=== PATIENT | male | born 1940 | race Caucasian/White ===

== ENCOUNTER 2024-10-21 07:23 | Inpatient (IN) | payer MEDICARE, BC ==
[~2024-10-21] VITALS: Ht 170.2 cm; Wt 80.0 kg
[2024-10-21 08:08] VITALS: PULSE 97; RESP 32; O2SAT 92
--- NOTE | 2024-10-21 08:13 | ED.PDOC ---
HPI (NEURO) HPI Comments 84 year old male NORAH presents to the ED with chief complaint of generalized weakness. Patient reports that at around 3am, he had gotten up to go to the restroom when he had started to feel generally weak. Patient relays that when attempting to leave the bathroom, he had lost his balance and fell, causing a skin tear to his right elbow. Patient states that he had tried to call for his family, but no one found him until 6:30am. Patient notes he had some frequent urination since yesterday, but also notes that he is taking Flomax. EMS reports patient was noted to be weak when standing, not able to ambulate without assistance along with having a BP of 200/70s, going down to 143/77 in the ED. EMS relays that the patient's blood glucose was 118 on scene. Patient denies any numbness, weakness, head injury, LOC, dizziness, N/V, chest pain, or SOB. Chief Complaint: General Weakness Time Seen by MD: 07:57 Primary Care Provider: Toby Dickens Notes: Nurses Notes, Carbon Electrodes Supervisor Notes, Medications, Allergies Information Source: Patient, Emergency Med Personnel Mode of Arrival: EMS Severity: Moderate Dizziness/Weakness Severity: Does not affect activitie Timing: Hours Duration: Since onset Prehospital treatment: None Weakness Location: Generalized Onset: At rest Circumstances: Spontaneous Symptoms: Imbalance, Weakness History of: TIA, Hypertension Modifying factors: Nothing Associated Signs and Symptoms: Weakness Past Medical History PAST MEDICAL HISTORY: HTN, TIA Surgical History: Denies all surgeries Family History Family History: Reviewed,noncontributory to illness Social History Smoker: Non-Smoker Alcohol: Denies ETOH Use Drugs: Denies Drug Use Lives In: Home Constitutional: reports: weakness; denies: chills, diaphoresis, fatigue, fever, malaise, sweats, others EENTM: denies: blurred vision, double vision, ear bleeding, ear discharge, ear drainage, ear pain, ear ringing, eye pain, eye redness, hearing loss, mouth pain, mouth swelling, nasal discharge, nose bleeding, nose congestion, nose pain, photophobia, tearing, throat pain, throat swelling, voice changes, others Respiratory: denies: cough, hemoptysis, orthopnea, SOB at rest, shortness of breath, SOB with excertion, stridor, wheezing, others Cardiovascular: denies: chest pain, dizzy spells, diaphoresis, Dyspnea on exertion, edema, irregular heart beat, left arm pain, lightheadedness, palpitations, PND, syncope, others Gastrointestinal: denies: abdomen distended, abdominal pain, blood streaked bowels, constipated, diarrhea, dysphagia, difficulty swallowing, hematemesis, melena, nausea, poor appetite, poor fluid intake, rectal bleeding, rectal pain, vomiting, others Genitourinary: reports: frequency; denies: burning, dysuria, flank pain, hematuria, incontinence, penile discharge, penile sore, pain, testicle pain, testicle swelling, urgency, others Neurological: denies: dizziness, fainting, headache, left sided numbness, left sided weakness, numbness, paresthesia, pre-existing deficit, right sided numbness, right sided weakness, seizure, speech problems, tingling, tremors, weakness, others Musculoskeletal: denies: back pain, gout, joint pain, joint swelling, muscle pain, muscle stiffness, neck pain, others Integumetry: reports: others (Skin tear to right elbow); denies: bruises, change in color, change in hair/nails, dryness, laceration, lesions, lumps, rash, wounds Allergic/Immunocompromised: denies: Difficulty Healing, Frequent Infections, Hives, Itching, others Hematologic/Lymphatic: denies: anemia, blood clots, easy bleeding, easy bruising, swollen glands, others Endocrine: denies: excessive hunger, excessive sweating, excessive thirst, excessive urination, flushing, intolerance to cold, intolerance to heat, unexplained weight gain, unexplained weight loss, others Psychiatric: denies: anxiety, bipolar disorder, depression, hopeless, panic disorder, schizophrenia, sleepless, suicidal, others All Other Systems: Reviewed and Negative Physical Exam General Appearance: No Apparent Distress, Normal HEENT: Normal ENT Inspection, PERRL/EOMI Neck: Full Range of Motion, Non-Tender, Normal, Normal Inspection Respiratory: Chest Non-Tender, Lungs Clear, No Accessory Muscle Use, No Respiratory Distress, Normal Breath Sounds Cardiovascular: No Edema, No JVD, No Murmur, No Gallop, Normal Peripheral Pulses, Regular Rate/Rhythm Breast Exam: Deferred Gastrointestinal: No Organomegaly, Non Tender, No Pulsatile Mass, Normal Bowel Sounds, Soft Genitalia: Deferred Pelvic: Deferred Rectal: Deferred Extremities: No calf tenderness, Normal capillary refill, Normal inspection, Normal range of motion, Non-tender, No pedal edema Musculoskeletal : Apperance: Normal Neurologic: Alert, financial processing clerk II-XII nml as Tested, No Motor Deficits, Normal Affect, Normal Mood, No Sensory Deficits, Other (5/5 strength to bilateral upper and lower extremities, no facial droop or slurred speech) Cerebellar Function: Normal Reflexes: Normal Skin: Dry, Normal Color, Warm, Other (1.5cm circular skin tear to the right elbow.) Lymphatic: No Adenopathy EKG EKG #1: Pulse Rate (adult): 95 [place]: Normal Cardiac Rhythm: NSR Block: None ST: Normal Comments Non specific ST changes to V4, V5, and V6 EKG #2: Pulse Rate (adult): 95 [place]: Normal Cardiac Rhythm: NSR, PVC's Block: None Hypertrophy: None ST: Normal Comments @0845: No significant ST changes. Was a procedure done? Was a procedure done?: No Differential Diagnosis (SZ) CVA: CVA, TIA General Weakness: Dehydration, Electrolyte imbalance, Other (UTI, spinal fracture, intracranial hemorrhage, laceration, abrasion, hip dislocation, fracture) X-Ray, Labs, Meds, VS Vital Signs Date Time Temp Pulse Resp B/P (MAP) Pulse Ox O2 Delivery O2 Flow Rate FiO2 10/21/24 08:28 95 10/21/24 08:25 95 10/21/24 08:12 95 10/21/24 08:08 97 32 92 Room Air* 0 21 10/21/24 08:06 99.2 111 14 160/63 (95) 94 99.2 10/21/24 07:32 98.0 99 20 143/77 (99) 95 98.0 10/21/24 07:26 95 Lab Test 10/21/24 10:13 10/21/24 08:14 10/21/24 07:56 Range/Units Troponin I High Sensitivity 66 *H 41 </=54 ng/L White Blood Count 8.2 4.4-10.8 10^3/uL Red Blood Count 3.73 L 4.5-5.90 10^6/uL Hemoglobin 12.6 L 13.5-17.5 g/dL Hematocrit 37.0 L 41.0-53.0 % Mean Corpuscular Volume 99.3 80.0-100.0 fL Mean Corpuscular Hemoglobin 33.8 H 28.0-32.0 pg Mean Corpuscular Hemoglobin Concent 34.1 32.0-36.0 g/dL Red Cell Distribution Width 13.6 11.8-14.3 % Platelet Count 129 L 140-450 10^3/uL Mean Platelet Volume 7.9 6.9-10.8 fL Neutrophils (%) (Auto) 88.4 H 37.0-80.0 % Lymphocytes (%) (Auto) 2.6 L 10.0-50.0 % Monocytes (%) (Auto) 8.2 0.0-12.0 % Eosinophils (%) (Auto) 0.2 0.0-7.0 % Basophils (%) (Auto) 0.6 0.0-2.0 % Neutrophils # (Auto) 7.3 1.6-8.6 10 ^3/uL Lymphocytes # (Auto) 0.2 L 0.4-5.4 10 ^3/uL Monocytes # (Auto) 0.7 0-1.3 10 ^3/uL Eosinophils # (Auto) 0 0-0.8 10 ^3/uL Basophils # (Auto) 0.1 0-0.2 10 ^3/uL Nucleated Red Blood Cells 0.3 % Sodium Level 141 136-145 mmol/L Potassium Level 4.2 3.5-5.1 mmol/L Chloride Level 109 H 98-107 mmol/L Carbon Dioxide Level 21 20-31 mmol/L Anion Gap 11 5-15 Blood Urea Nitrogen 41 H 9-23 mg/dL Creatinine 1.49 H 0.700-1.30 mg/dL Glomerular Filtration Rate Calc 46 >90 mL/min BUN/Creatinine Ratio 27.5 H 10.0-20.0 Serum Glucose 110 H 74-106 mg/dL Hemoglobin A1c 5.4 <5.7 % A1C Calcium Level 10.0 8.7-10.4 mg/dL Triglycerides Level 107 < 150 mg/dL Cholesterol Level 111 < 200 mg/dL LDL Cholesterol 54 < 100 mg/dL HDL Cholesterol 41 40-59 mg/dL Thyroid Stimulating Hormone (TSH) 0.64 0.55-4.78 uIU/mL Urine Color Light-yellow Yellow Urine Clarity Turbid H Clear Urine pH 6.0 5.0-9.0 Urine Specific [place] 1.016 1.001-1.035 Urine Protein 2+ H Negative Urine Ketones Negative Negative Urine Blood 2+ H Negative /uL Urine Nitrite Negative Negative Urine Bilirubin Negative Negative Urine Urobilinogen Normal Negative mg/dL Urine Leukocyte Esterase 3+ Negative /uL Urine RBC 6 0 - 3 /hpf Urine WBC Clumps Present None Seen /hpf Urine Microscopic WBC 641 H 0-3 /HPF Urine Squamous Epithelial Cells None seen <5 /hpf Urine Bacteria None seen None Seen /hpf Urine Mucus Few None Seen Urine Glucose Normal Normal mg/dL Urine Opiates Screen Neg NEGATIVE Urine Fentanyl Screen Neg NEGATIVE Urine Barbiturates Screen Neg NEGATIVE Urine Phencyclidine Screen Neg NEGATIVE Urine Amphetamines Screen Neg NEGATIVE Urine Benzodiazepines Screen Neg NEGATIVE Urine Cocaine Screen Neg NEGATIVE Urine Cannabinoids Screen Neg NEGATIVE Current Medications Medications (Trade) Dose Ordered Sig/Rigo Route Start Time Stop Time Status Last Admin Sodium Chloride 500 ml @ 500 mls/hr Q1H ONCE IV 10/21/24 08:00 10/21/24 08:59 DC 10/21/24 09:00 84-year-old male presents here status post fall. He had evidence of a skin tear to his right elbow. He has range of motion to the right out fracture. The skin has been cleaned and dressed with a nonadhesive dressing. Tetanus status has been updated. CBC CMP, troponin has been done. There was evidence of acute kidney injury, NSTEMI and urine demonstrates a UTI. I have started him on Rocephin IV. A CT scan of the brain has been done no evidence of acute pathology. EKG with nonspecific changes. Patient has been given aspirin in the ER. At this time I believe he would benefit from inpatient admission. Hospitalist team has been contacted. Time of 1ST Reevaluation: 08:57 Reevaluation 1ST: Unchanged Patient Education/Counseling: Diagnosis, Treatment Family Education/Counseling: No Family Present Departure 1 Departure Time of Disposition: 11:00 Impression: Primary Impression: Thrombocytopenia Additional Impressions: NSTEMI (non-ST elevated myocardial infarction) MISTI (acute kidney injury) UTI (urinary tract infection) Qualified Codes: N30.01 - Acute cystitis with hematuria Skin tear Disposition: ADMITTED INPATIENT Condition: Guarded Critical Care Note Critical Care Time?: No Stability Stability form required: No Heart Score Heart Score: Heart Score Response (Comments) Value History N/A 0 EKG N/A 0 Age N/A 0 Risk Factors N/A 0 Troponin N/A 0 Total 0 I personally scribed for ROMANA HUGHES MD ([email or web address]) on 10/21/24 at 08:12. Electronically submitted by Patel Munoz ([email or web address]). I personally scribed for ROMANA HUGHES MD ([email or web address]) on 10/21/24 at 08:28. Electronically submitted by Patel Munoz ([email or web address]). I personally scribed for ROMANA HUGHES MD ([email or web address]) on 10/21/24 at 11:05. Electronically submitted by Patel Munoz ([email or web address]). ROMANA HUGHES MD Oct 21, 2024 08:12
[2024-10-21 08:23] LABS: Urine Bacteria None Seen /hpf (None Seen)
[2024-10-21 08:30] LABS: Basophils # (auto) 0.1 10 ^3/uL (0-0.2); Basophils % (auto) 0.6 % (0.0-2.0); Eosinophils # (auto) 0 10 ^3/uL (0-0.8); Eosinophils % (auto) 0.2 % (0.0-7.0); Hemoglobin 12.6 g/dL (13.5-17.5); Lymphocytes # (auto) 0.2 10 ^3/uL (0.4-5.4); Lymphocytes % (auto) 2.6 % (10.0-50.0); Mean Corpuscular Hemoglobin 33.8 pg (28.0-32.0); Mean Corpuscular Hgb Conc. 34.1 g/dL (32.0-36.0); Mean Corpuscular Volume 99.3 fL (80.0-100.0); Monocytes # (auto) 0.7 10 ^3/uL (0-1.3); Monocytes % (auto) 8.2 % (0.0-12.0); Neutrophils # (auto) 7.3 10 ^3/uL (1.6-8.6); Neutrophils % (auto) 88.4 % (37.0-80.0); Nucleated Red Blood Cells % 0.3 %; Platelet Count (auto) 129 10^3/uL (140-450); Red Blood Cells 3.73 10^6/uL (4.5-5.90); Red Cell Distribution Width 13.6 % (11.8-14.3); White Blood Cell 8.2 10^3/uL (4.4-10.8)
[2024-10-21 08:30] LABS: Urine Blood 2+ /uL (Negative); Urine Clarity Turbid (Clear); Urine Color Light-Yellow (Yellow); Urine Mucus FEW (None Seen); Urine Protein, UAD 2+ (Negative); Urine Specific Gravity 1.016 (1.001-1.035); Urine Squamous Epithelial Cell None Seen /hpf (<5); Urine Urobilinogen Normal (Negative); Urine WBC 641 /HPF (0-3); Urine WBC Clumps PRESENT /hpf (None Seen)
[2024-10-21 08:38] LABS: Potassium 4.2 mmol/L (3.5-5.1); Sodium 141 mmol/L (136-145)
[2024-10-21 08:39] LABS: Anion Gap 11 (5-15); Carbon Dioxide 21 mmol/L (20-31)
[2024-10-21 08:40] LABS: Chloride 109 mmol/L (98-107)
[2024-10-21 08:44] LABS: BUN/Creatinine Ratio 27.5 (10.0-20.0)
[2024-10-21 08:45] LABS: Blood Urea Nitrogen 41 mg/dL (9-23); Glucose 110 mg/dL (74-106)
[2024-10-21] MEDS: SODIUM CHLORIDE 0.9% 500 ML IV ONE (09:00)
[2024-10-21] MEDS: cefTRIAXone 1GM/50ML D5W 50 ML IV ONE (11:00)
[2024-10-21] MEDS: ASPirin 81 mg TAB PO ONE (11:00)
[2024-10-21] MEDS: TETANUS-DIPTH-ACEL PERTUSSIS 0.5ML SYR Tdap IM ONE (11:00)
[2024-10-21] MEDS ORDERED: ISOS1TAB28 PO (11:29)
[2024-10-21] MEDS ORDERED: FERR325T20 PO (11:29)
[2024-10-21] MEDS ORDERED: ROSU5TAB24 PO (11:29)
[2024-10-21] MEDS ORDERED: MET25T PO (11:29)
[2024-10-21] MEDS ORDERED: LISI10TA34 PO (11:29)
[2024-10-21] MEDS ORDERED: TAMS0.4C39 PO (11:29)
[2024-10-21] MEDS ORDERED: CLOP75TA70 PO (11:29)
[2024-10-21] MEDS ORDERED: ONDANSETRON HCL 4 MG/2 ML VIAL IV PRN (11:30)
[2024-10-21] MEDS: cefTRIAXone 1GM/50ML D5W 50 ML IV SCH (11:30)
[2024-10-21] MEDS ORDERED: MORPHINE SULFATE INJ 2 MG/ml SYRG IV PRN (11:30)
[2024-10-21] MEDS ORDERED: NITROGLYCERIN 0.4 MG SL TAB SL PRN (11:30)
[2024-10-21] MEDS: ASPirin 81 mg TAB PO SCH (11:30)
--- NOTE | 2024-10-21 11:48 | DVHHP2 ---
History of Present Illness Reason for Visit: Generalized weakness History of Present Illness Ariel Escobar is an 84-year-old male with past medical history of hypertension, TIA, and CABG x5 in 2007 at [facility] who presents to the ED for generalized weakness. Patient states that he was getting up to go use the restroom with his front wheel walker sat on the toilet then got up and stated that he was too weak and fell on his right elbow with noted bleeding. Patient also states that he was having frequency to go to void. Patient reports that he lives at home with his family. Patient denies any chest pain, shortness of breath, fever, chills, lightheadedness, dizziness, abdominal pain, nausea, vomiting, diarrhea, recent sick contacts, recent ingestion of spoiled food, or recent travels. 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 Past Surgical History: CABG Family History: None Smoke: No ALCOHOL: none Drugs: None Lives: with Family Domestic Violence: Neg Review of Systems Constitutional: Yes: Weakness Genitourinary: Frequency Allergies: Coded Allergies: NO KNOWN ALLERGIES (Unverified , 10/21/24) Medications Current Medications Medications Dose Ordered Sig/Rigo Route Start Time Stop Time Status Last Admin Dose Admin Ceftriaxone Sodium 50 ml @ 100 mls/hr DAILY@09 IV 10/21/24 11:30 UNV Ondansetron HCl 4 mg Q4HP PRN IV 10/21/24 11:30 UNV Acetaminophen 650 mg Q6HP PRN PO 10/21/24 11:30 UNV Nitroglycerin 0.4 mg Q5MINP PRN SL 10/21/24 11:30 UNV Morphine Sulfate 2 mg Q30M PRN IV 10/21/24 11:30 UNV Aspirin 81 mg DAILY PO 10/21/24 11:30 UNV Exam Vital Signs Vital Signs Date Time Temp Pulse Resp B/P (MAP) Pulse Ox O2 Delivery O2 Flow Rate FiO2 10/21/24 08:28 95 10/21/24 08:08 32 92 Room Air* 0 21 10/21/24 08:06 99.2 160/63 (95) 99.2 General Appearance: Alert, Oriented X3, Cooperative, No acute distress HEENT: Atraumatic, PERRLA, EOMI, Mucous membr. moist/pink Respiratory: Clear to auscultation, Normal air movement Cardiovascular: Normal S1, Normal S2, No murmurs Abdominal: Normal bowel sounds, Soft, No tenderness, No hepatospenomegaly, No masses Extremities: No clubbing, No cyanosis, Normal pulses Neuro: Normal speech, Normal tone, Sensation intact Psych/Mental Status: Mental status NL, Mood NL Labs/Xrays Labs Test 10/21/24 10:13 10/21/24 08:14 10/21/24 07:56 Range/Units Troponin I High Sensitivity 66 *H </=54 ng/L White Blood Count 8.2 4.4-10.8 10^3/uL Red Blood Count 3.73 L 4.5-5.90 10^6/uL Hemoglobin 12.6 L 13.5-17.5 g/dL Hematocrit 37.0 L 41.0-53.0 % Mean Corpuscular Volume 99.3 80.0-100.0 fL Mean Corpuscular Hemoglobin 33.8 H 28.0-32.0 pg Mean Corpuscular Hemoglobin Concent 34.1 32.0-36.0 g/dL Red Cell Distribution Width 13.6 11.8-14.3 % Platelet Count 129 L 140-450 10^3/uL Mean Platelet Volume 7.9 6.9-10.8 fL Neutrophils (%) (Auto) 88.4 H 37.0-80.0 % Lymphocytes (%) (Auto) 2.6 L 10.0-50.0 % Monocytes (%) (Auto) 8.2 0.0-12.0 % Eosinophils (%) (Auto) 0.2 0.0-7.0 % Basophils (%) (Auto) 0.6 0.0-2.0 % Neutrophils # (Auto) 7.3 1.6-8.6 10 ^3/uL Lymphocytes # (Auto) 0.2 L 0.4-5.4 10 ^3/uL Monocytes # (Auto) 0.7 0-1.3 10 ^3/uL Eosinophils # (Auto) 0 0-0.8 10 ^3/uL Basophils # (Auto) 0.1 0-0.2 10 ^3/uL Nucleated Red Blood Cells 0.3 % Sodium Level 141 136-145 mmol/L Potassium Level 4.2 3.5-5.1 mmol/L Chloride Level 109 H 98-107 mmol/L Carbon Dioxide Level 21 20-31 mmol/L Anion Gap 11 5-15 Blood Urea Nitrogen 41 H 9-23 mg/dL Creatinine 1.49 H 0.700-1.30 mg/dL Glomerular Filtration Rate Calc 46 >90 mL/min BUN/Creatinine Ratio 27.5 H 10.0-20.0 Serum Glucose 110 H 74-106 mg/dL Calcium Level 10.0 8.7-10.4 mg/dL Urine Color Light-yellow Yellow Urine Clarity Turbid H Clear Urine pH 6.0 5.0-9.0 Urine Specific [place] 1.016 1.001-1.035 Urine Protein 2+ H Negative Urine Ketones Negative Negative Urine Blood 2+ H Negative /uL Urine Nitrite Negative Negative Urine Bilirubin Negative Negative Urine Urobilinogen Normal Negative mg/dL Urine Leukocyte Esterase 3+ Negative /uL Urine RBC 6 0 - 3 /hpf Urine WBC Clumps Present None Seen /hpf Urine Microscopic WBC 641 H 0-3 /HPF Urine Squamous Epithelial Cells None seen <5 /hpf Urine Bacteria None seen None Seen /hpf Urine Mucus Few None Seen Urine Glucose Normal Normal mg/dL Assessment/Plan Assessment/Plan Assessment Generalized weakness likely due to UTI Right elbow abrasion status post fall Elevated troponins Thrombocytopenia MISTI Hypertensive urgency History of hypertension History of TIA History of CABG x5 in 2007 at [facility] Plan Admit to tele UA Aspirin IV antibiotics-ceftriaxone Tdap given ED NS 500 cc given ED EKG Trend troponins UA Echo ordered UDS TSH Lipid panel Hemoglobin A1c Right elbow x-ray ordered Home medications reconciled DVT prophylaxis-patient on Plavix, continue home medication PUD prophylaxis-not indicated no history of GERD or GI bleed Discussed plan of care with patient and nurse Cardiac consult Plan discussed with: Patient My Orders Orders - MOISES CORTEZ MED DIR Procedure Category Date Status Time Ceftriaxone 1gm/50ml PHA 10/21/24 Logged D5w (Rocephin) 11:30 Admit ADMIT 10/21/24 Transmitted 11:25 Allergies TRACY 10/21/24 In Process 11:25 Code Status CODE 10/21/24 Transmitted 11:25 Ondansetron Hcl PHA 10/21/24 Logged (Zofran) 11:30 Complete Blood Count LAB 10/22/24 Verified 04:00 Comprehensive LAB 10/22/24 Verified Metabolic Panel 04:00 Cardiac DIET 10/21/24 Transmitted Diet-2gna,Lofat,Lochol Lunch Acetaminophen Tablet PHA 10/21/24 Logged (Tylenol Tablet) 11:30 Nitroglycerin PHA 10/21/24 Logged Sublingual (Ntrostat 11:30 Morphine Sulfate PHA 10/21/24 Transmitted Injection 11:30 Stat Ekg For Chest TRACY 10/21/24 In Process Pain 11:25 Notify Md Of Changes TRACY 10/21/24 In Process From Base 11:25 Recreation Program Specialist For TRACY 10/21/24 In Process 24 Hours 11:25 Emergency Dysrhythmia TRACY 10/21/24 In Process Protocol 11:25 Rhythm Strips Once TRACY 10/21/24 In Process Every Shift 11:25 Oxygen By Nasal RT 10/21/24 Transmitted Cannula 11:25 * Cardiology Consult CONS 10/21/24 Transmitted 11:25 Echo 2d Mode Cardiac US 10/21/24 Logged DOP 11:25 Hemoglobin A1c LAB 10/21/24 Logged 11:25 Thyroid Stimulating LAB 10/21/24 Logged Hormone 11:25 Lipid Panel LAB 10/21/24 Logged 11:25 Drug Screen LAB 10/21/24 Logged 11:25 Aspirin Tablet PHA 10/21/24 Transmitted 11:30 Clopidogrel Bisulfate PHA 10/22/24 Verified (Plavix) 10:00 Metoprolol Tartrate PHA 10/22/24 Verified Tablet (Lopressor Ta 10:00 Tamsulosin PHA 10/22/24 Verified Hydrochloride (Flomax) 10:00 (Nf) Ferrous Sulfate PHA 10/22/24 Verified (Ferosul) 10:00 (Nf) Isosorbide PHA 10/22/24 Verified Mononitrate 10:00 (Nf) Lisinopril PHA 10/22/24 Verified 10:00 (Nf) Rosuvastatin PHA 10/22/24 Verified Calcium 10:00 Date of Service: Oct 21, 2024 Billing Provider: MOISES CORTEZ Common Visit Codes: [id number] INP/OBS CARE (HIGH) MOISES CORTEZ Oct 21, 2024 11:48
[2024-10-21 11:57] LABS: Triglycerides 107 mg/dL (< 150)
[2024-10-21 11:58] LABS: LDL Cholesterol 54 mg/dL (< 100)
[2024-10-21 11:59] LABS: Cholesterol 111 mg/dL (< 200); HDL Cholesterol 41 mg/dL (40-59)
[2024-10-21 12:05] LABS: Amphetamine Screen, Urine Neg (NEGATIVE); Barbiturate Scree,Urine Neg (NEGATIVE); Benzodiazephine Screen, Urine Neg (NEGATIVE); Cannabinoid Screen, Urine Neg (NEGATIVE); Cocaine Screen, Urine Neg (NEGATIVE); Opiate Scree,Urine Neg (NEGATIVE); Phencyclidine Screen, Urine Neg (NEGATIVE)
[2024-10-21] MEDS: ACETAMINOPHEN 325 MG TAB PO PRN (12:55)
--- NOTE | 2024-10-21 12:56 | DVH ---
CLINICAL INDICATION: fall on elbow TECHNIQUE: XY R ELBOW 2V XRAY Comparison: None FINDINGS/IMPRESSION: : There is no evidence of acute fracture or dislocation. Moderate anterior joint effusion. Diffuse degenerative changes.
[2024-10-21 13:50] VITALS: BP 128/57; PULSE 85; RESP 16; TEMP 98.2; O2SAT 96
[2024-10-21 13:56] VITALS: BP 128/57; PULSE 85; RESP 16; TEMP 98.2; O2SAT 96
--- NOTE | 2024-10-21 13:57 | DVHINCON2 ---
Date Seen: Oct 21, 2024 Referring Physician ANGELICA Martinez Reason for Consultation Elevated troponin History of Present Illness This is an 84-year-old male patient who presents to the emergency room with chief complaint of generalized weakness. The patient reports he was walking to the restroom and started to feel weak. He reports making it to the toilet and then being unable to get off of the toilet seat. The patient reports falling off of the toilet see in an attempt to get up but denies any loss of consciousness or hitting his head. He reports called the out for help and his and grandson were able to assist him back into a standing position. EMS was called and the patient was brought to this facility for further evaluation. Cardiology is now being consulted for elevated troponin levels. Initial twelve lead electrocardiogram reveals normal sinus rhythm with Q-waves seen in inferior leads. Initial troponin level of 41ng/L, and current peak level of 66ng/L. The patient denies any cardiac symptoms whatsoever. He does mentioned issues with urinary frequency that began yesterday. Significant past medical history includes severe coronary artery disease status post quintuple bypass surgery (on Plavix), hypertension, dyslipidemia, chronic kidney disease, BPH, and TIA. 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 Past Medical History Past medical history reviewed. No other significant than mentioned above. Past Surgical History Quintuple bypass surgery in 2007 Family History Family history reviewed. Social History Denies the use of tobacco, alcohol or illicit drugs. Allergies: Coded Allergies: NO KNOWN ALLERGIES (Unverified , 10/21/24) Home Meds Reported Medications Clopidogrel Bisulfate (CLOPIDOGREL) 75 Mg Tab, 1 TAB PO DAILY 10/21/24 Isosorbide Mononitrate (Isosorbide Mononitrate Er) 30 Mg Tab, 1 TAB PO DAILY 10/21/24 Ferrous Sulfate (Ferosul) 325 Mg Tab, 1 TAB PO DAILY 10/21/24 Rosuvastatin Calcium (Rosuvastatin Calcium) 5 Mg Tab, 1 TAB PO DAILY 10/21/24 Metoprolol Tartrate (Lopressor) 25 Mg Tb, 1 TAB PO 10/21/24 Lisinopril (Lisinopril) 10 Mg Tab, 1 TAB PO DAILY 10/21/24 Tamsulosin Hcl (Tamsulosin Hcl) 0.4 Mg Cap, 1 CAP PO 10/21/24 Home Meds Home medications reviewed. Current Medications Current Medications Medications (Trade) Dose Ordered Sig/Rigo Route PRN Reason Start Time Stop Time Status Last Admin Ceftriaxone Sodium 50 ml @ 100 mls/hr DAILY@09 IV 10/21/24 11:30 10/21/24 11:30 Ondansetron HCl (Zofran) 4 mg Q4HP PRN IV NAUSEA / VOMITING 10/21/24 11:30 Acetaminophen (Tylenol Tablet) 650 mg Q6HP PRN PO PAIN SCALE 1-3 OR TEMP>100.4 10/21/24 11:30 10/21/24 12:55 Nitroglycerin (Ntrostat Sublingual) 0.4 mg Q5MINP PRN SL FOR CHEST PAIN 10/21/24 11:30 Morphine Sulfate 2 mg Q30M PRN IV FOR CHEST PAIN 10/21/24 11:30 Aspirin 81 mg DAILY PO 10/21/24 11:30 10/21/24 11:30 Clopidogrel Bisulfate (Plavix) 75 mg DAILY PO 10/22/24 10:00 Metoprolol Tartrate (Lopressor Tablet) 25 mg DAILY PO 10/22/24 10:00 Tamsulosin HCl (Flomax) 0.4 mg DAILY PO 10/22/24 10:00 Ferrous Sulfate 325 mg DAILY PO 10/22/24 10:00 Patient Own Medication 1 tab DAILY PO 10/22/24 10:00 Lisinopril (Zestril Tablet) 10 mg DAILY PO 10/22/24 10:00 Atorvastatin Calcium (Lipitor) 10 mg HS PO 10/21/24 22:00 Review of Systems Constitutional: Generalized weakness Ears, Nose, & Throat: No symptom reported Eyes: No symptom reported Neurological: No symptoms reported Pulmonary/Respiratory: No symptoms reported Cardiovascular: No symptom reported Gastrointestinal: No symptom reported Genitourinary: Urinary frequency Musculoskeletal: No symptom reported Skin: No symptom reported Psychiatric: No symptom reported Endocrine: No symptom reported Hematologic/Lymphatic: No symptom reported Vital Signs Vital Signs Date Time Temp Pulse Resp B/P (MAP) Pulse Ox O2 Delivery O2 Flow Rate FiO2 10/21/24 12:57 74 10/21/24 08:08 32 92 Room Air* 0 21 10/21/24 08:06 99.2 160/63 (95) 99.2 Physical Exam General Appearance: Cooperative. Well-developed. Well-nourished. No acute distress. Pulmonary/Respiratory: Clear, bilateral breaths sounds. Cardiovascular/Chest: Regular rate and rhythm. Peripheral Pulses: 2+ Radial (R). 2+ Radial (L). 2+ Pedal (R). 2+ Pedal (L) Abdominal Exam: Normal bowel sounds. Ankle Exam: Negative ankle edema Lower extremities: Negative lower extremity edema Neuro/Mental Status: A/OX4, coherent. Thoughts/Psych: Normal thought pattern. Appropriate mood and affect. Good judgment and insight. Appearance: No acute distress. Skin Exam: Normal inspection. Normal color. Warm and dry. Labs/Diagnostic Data Labs Test 10/21/24 10:13 10/21/24 08:14 10/21/24 07:56 Range/Units Troponin I High Sensitivity 66 *H </=54 ng/L White Blood Count 8.2 4.4-10.8 10^3/uL Red Blood Count 3.73 L 4.5-5.90 10^6/uL Hemoglobin 12.6 L 13.5-17.5 g/dL Hematocrit 37.0 L 41.0-53.0 % Mean Corpuscular Volume 99.3 80.0-100.0 fL Mean Corpuscular Hemoglobin 33.8 H 28.0-32.0 pg Mean Corpuscular Hemoglobin Concent 34.1 32.0-36.0 g/dL Red Cell Distribution Width 13.6 11.8-14.3 % Platelet Count 129 L 140-450 10^3/uL Mean Platelet Volume 7.9 6.9-10.8 fL Neutrophils (%) (Auto) 88.4 H 37.0-80.0 % Lymphocytes (%) (Auto) 2.6 L 10.0-50.0 % Monocytes (%) (Auto) 8.2 0.0-12.0 % Eosinophils (%) (Auto) 0.2 0.0-7.0 % Basophils (%) (Auto) 0.6 0.0-2.0 % Neutrophils # (Auto) 7.3 1.6-8.6 10 ^3/uL Lymphocytes # (Auto) 0.2 L 0.4-5.4 10 ^3/uL Monocytes # (Auto) 0.7 0-1.3 10 ^3/uL Eosinophils # (Auto) 0 0-0.8 10 ^3/uL Basophils # (Auto) 0.1 0-0.2 10 ^3/uL Nucleated Red Blood Cells 0.3 % Sodium Level 141 136-145 mmol/L Potassium Level 4.2 3.5-5.1 mmol/L Chloride Level 109 H 98-107 mmol/L Carbon Dioxide Level 21 20-31 mmol/L Anion Gap 11 5-15 Blood Urea Nitrogen 41 H 9-23 mg/dL Creatinine 1.49 H 0.700-1.30 mg/dL Glomerular Filtration Rate Calc 46 >90 mL/min BUN/Creatinine Ratio 27.5 H 10.0-20.0 Serum Glucose 110 H 74-106 mg/dL Hemoglobin A1c 5.4 <5.7 % A1C Calcium Level 10.0 8.7-10.4 mg/dL Triglycerides Level 107 < 150 mg/dL Cholesterol Level 111 < 200 mg/dL LDL Cholesterol 54 < 100 mg/dL HDL Cholesterol 41 40-59 mg/dL Thyroid Stimulating Hormone (TSH) 0.64 0.55-4.78 uIU/mL Urine Color Light-yellow Yellow Urine Clarity Turbid H Clear Urine pH 6.0 5.0-9.0 Urine Specific [place] 1.016 1.001-1.035 Urine Protein 2+ H Negative Urine Ketones Negative Negative Urine Blood 2+ H Negative /uL Urine Nitrite Negative Negative Urine Bilirubin Negative Negative Urine Urobilinogen Normal Negative mg/dL Urine Leukocyte Esterase 3+ Negative /uL Urine RBC 6 0 - 3 /hpf Urine WBC Clumps Present None Seen /hpf Urine Microscopic WBC 641 H 0-3 /HPF Urine Squamous Epithelial Cells None seen <5 /hpf Urine Bacteria None seen None Seen /hpf Urine Mucus Few None Seen Urine Glucose Normal Normal mg/dL Urine Opiates Screen Neg NEGATIVE Urine Fentanyl Screen Neg NEGATIVE Urine Barbiturates Screen Neg NEGATIVE Urine Phencyclidine Screen Neg NEGATIVE Urine Amphetamines Screen Neg NEGATIVE Urine Benzodiazepines Screen Neg NEGATIVE Urine Cocaine Screen Neg NEGATIVE Urine Cannabinoids Screen Neg NEGATIVE Assessment Urinary tract infection NSTEMI, likely type 2 secondary to above Rule out structural heart disease Severe coronary artery disease status post quintuple bypass surgery (on Plavix) Hypertension Dyslipidemia Chronic kidney disease BPH History of TIA Plan/Recommendation We will continue following plan/recommendations (Dr. Guillaume): Patient seen and examined at bedside with . We will proceed with obtaining a transthoracic echocardiogram to evaluate cardiac function. Elevated troponin level likely secondary to demand mismatch ischemia from urinary tract infection. Continue with single antiplatelet therapy and lipid-lowering agent. Continue with blood pressure control. Continue with close cardiac surveillance. Thank you for allowing us to care for this patient. Please call with any questions or concerns. Critical care time spent: 41 minutes This medical document was created using an electronic medical record system with voice recognition software and computerized dictation system. Although this document has been carefully reviewed, there might still be some phonetic and typographical errors. Occasional wrong-word or ``sound-alike substitutions may have occurred due to the inherent limitations of voice recognition software. These areas are purely typographical due to imperfections of the software programs and do not reflect any compromise in the patient's medical care. Please read the chart carefully and recognize, using context, where these substitutions have occurred. Plan discussed with: Patient NYHA Physical activity limitations: NA Date of Service: Oct 21, 2024 Billing Provider: CINDY BALTAZAR Cardiology Common Codes: [id number] INP/OBS CARE (High) Cardiology Consultation Codes: [id number] CONSULT <45MIN CINDY BALTAZAR Oct 21, 2024 13:57
[2024-10-21 17:00] VITALS: BP 129/56; PULSE 82; RESP 20; TEMP 98; O2SAT 98
--- NOTE | 2024-10-21 17:20 | DVHSR ---
APPROVED REPORT EXAM: Two-dimensional and M-mode echocardiogram with Doppler and color Doppler. Blood Pressure: 160/63 mmHg INDICATION Elevated Trop RISK FACTORS Height: 5'7", Weight: 180 DIMENSIONS LVDd4.7 (3.8-5.7cm)LA (2D)4.6 (1.9-4.0cm)Aortic Root3.5 (2.0-3.7cm) LVDs2.6 (2.5-4.0cm)LA (MM) (1.9-4.0cm)Aortic Cusp Exc1.9 (1.5-2.0cm) EF (%) 74.0 (55-70%)Rt. Atrium (1.9-4.0cm)Asc. Aorta cm IVSd1.0 (0.7-1.1cm)RV (D) (1.8-2.4cm) PWd1.0 (0.7-1.1cm) Mitral Valve MitralMitral Stenosis E wave0.79m/sMV Mean GR.mmHg A wave0.78m/sMV Peak GR.mmHg E/A ratio1.02D MVAcm2 DECEL [id number] 1/2 Timems Aortic Valve Aortic ValveAortic Stenosis V10.93m/[place] Mean GR.4mmHg V21.26m/[place] Peak GR.6mmHg LVOT Diameter2.4 (1.8-2.4cm)Doppler AVA3.34cm2 Pulmonic Valve V21.35m/s Tricuspid Valve TR Velocity3.01m/s [id number] Other Information Quality : Technically LimitedRhythm : Technically limited study due to body habitus and patient position. Conclusion Technically difficult study with poor cardiac visualization LVEF is normal at 50-55%, mild diastolic dysfunction rv not well visualized, likely normal mild pulm htn
--- NOTE | 2024-10-21 18:14 | ECG ---
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
--- NOTE | 2024-10-21 18:15 | ECG ---
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
[2024-10-21 20:00] VITALS: PULSE 87
[2024-10-21 21:00] VITALS: BP 166/90; PULSE 90; RESP 18; TEMP 100.4; O2SAT 96
[2024-10-21] MEDS: ATORVASTATIN 20 MG TAB PO SCH (21:04)
--- NOTE | 2024-10-21 21:59 | DVHINCON2 ---
Date Seen: Oct 21, 2024 Referring Physician ANGELICA Martinez Reason for Consultation Elevated troponin History of Present Illness This is an 84-year-old male past medical history includes severe coronary artery disease status post quintuple bypass surgery (on Plavix), hypertension, dyslipidemia, chronic kidney disease, BPH, and TIA who presents to the emergency room with a complaint of generalized weakness. The patient reports he was walking to the restroom and started to feel weak. He reports making it to the toilet and then being unable to get off of the toilet seat. The patient reports falling off of the toilet see in an attempt to get up but denies any loss of consciousness or hitting his head. He reports called the out for help and his and grandson were able to assist him back into a standing position. EMS was called and the patient was brought to this facility for further evaluation. Cardiology is now being consulted for elevated troponin levels. Initial twelve lead electrocardiogram reveals normal sinus rhythm with Q-waves seen in inferior leads. Initial troponin level of 41ng/L, and current peak level of 66ng/L. The patient denies any cardiac symptoms whatsoever. He does mentioned issues with urinary frequency that began yesterday. 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 Family History: Patient reports no known family medical history. Allergies: Coded Allergies: NO KNOWN ALLERGIES (Unverified , 10/21/24) Home Meds Reported Medications Clopidogrel Bisulfate (CLOPIDOGREL) 75 Mg Tab, 1 TAB PO DAILY 10/21/24 Isosorbide Mononitrate (Isosorbide Mononitrate Er) 30 Mg Tab, 1 TAB PO DAILY 10/21/24 Ferrous Sulfate (Ferosul) 325 Mg Tab, 1 TAB PO DAILY 10/21/24 Rosuvastatin Calcium (Rosuvastatin Calcium) 5 Mg Tab, 1 TAB PO DAILY 10/21/24 Metoprolol Tartrate (Lopressor) 25 Mg Tb, 1 TAB PO 10/21/24 Lisinopril (Lisinopril) 10 Mg Tab, 1 TAB PO DAILY 10/21/24 Tamsulosin Hcl (Tamsulosin Hcl) 0.4 Mg Cap, 1 CAP PO 10/21/24 Current Medications Current Medications Medications (Trade) Dose Ordered Sig/Rigo Route PRN Reason Start Time Stop Time Status Last Admin Ceftriaxone Sodium 50 ml @ 100 mls/hr DAILY@09 IV 10/21/24 11:30 10/21/24 11:30 Ondansetron HCl (Zofran) 4 mg Q4HP PRN IV NAUSEA / VOMITING 10/21/24 11:30 Acetaminophen (Tylenol Tablet) 650 mg Q6HP PRN PO PAIN SCALE 1-3 OR TEMP>100.4 10/21/24 11:30 10/21/24 12:55 Nitroglycerin (Ntrostat Sublingual) 0.4 mg Q5MINP PRN SL FOR CHEST PAIN 10/21/24 11:30 Morphine Sulfate 2 mg Q30M PRN IV FOR CHEST PAIN 10/21/24 11:30 Aspirin 81 mg DAILY PO 10/21/24 11:30 10/21/24 11:30 Clopidogrel Bisulfate (Plavix) 75 mg DAILY PO 10/22/24 10:00 Metoprolol Tartrate (Lopressor Tablet) 25 mg DAILY PO 10/22/24 10:00 Tamsulosin HCl (Flomax) 0.4 mg DAILY PO 10/22/24 10:00 Ferrous Sulfate 325 mg DAILY PO 10/22/24 10:00 Patient Own Medication 1 tab DAILY PO 10/22/24 10:00 Lisinopril (Zestril Tablet) 10 mg DAILY PO 10/22/24 10:00 Atorvastatin Calcium (Lipitor) 10 mg HS PO 10/21/24 22:00 10/21/24 21:04 Review of Systems Constitutional: Generalized weakness Ears, Nose, & Throat: No symptom reported Eyes: No symptom reported Neurological: No symptoms reported Pulmonary/Respiratory: No symptoms reported Cardiovascular: No symptom reported Gastrointestinal: No symptom reported Genitourinary: Urinary frequency Musculoskeletal: No symptom reported Skin: No symptom reported Psychiatric: No symptom reported Endocrine: No symptom reported Hematologic/Lymphatic: No symptom reported Vital Signs Vital Signs Date Time Temp Pulse Resp B/P (MAP) Pulse Ox O2 Delivery O2 Flow Rate FiO2 10/21/24 20:00 Room Air* 0 21 10/21/24 17:00 98.0 82 20 129/56 (80) 98 98.0 Physical Exam GENERAL: Alert and oriented x 3. No acute distress. EYES: PERRL, EOMI. Anicteric. HENT: Moist mucous membranes. LUNGS: Clear to auscultation bilaterally. CARDIOVASCULAR: Regular rate and rhythm. ABDOMEN: Soft, nontender and nondistended. EXTREMITIES: No edema. NEUROLOGIC: No focal neurological deficits. SKIN: Warm, dry. Labs/Diagnostic Data Labs Test 10/21/24 10:13 10/21/24 08:14 10/21/24 07:56 Range/Units Troponin I High Sensitivity 66 *H </=54 ng/L White Blood Count 8.2 4.4-10.8 10^3/uL Red Blood Count 3.73 L 4.5-5.90 10^6/uL Hemoglobin 12.6 L 13.5-17.5 g/dL Hematocrit 37.0 L 41.0-53.0 % Mean Corpuscular Volume 99.3 80.0-100.0 fL Mean Corpuscular Hemoglobin 33.8 H 28.0-32.0 pg Mean Corpuscular Hemoglobin Concent 34.1 32.0-36.0 g/dL Red Cell Distribution Width 13.6 11.8-14.3 % Platelet Count 129 L 140-450 10^3/uL Mean Platelet Volume 7.9 6.9-10.8 fL Neutrophils (%) (Auto) 88.4 H 37.0-80.0 % Lymphocytes (%) (Auto) 2.6 L 10.0-50.0 % Monocytes (%) (Auto) 8.2 0.0-12.0 % Eosinophils (%) (Auto) 0.2 0.0-7.0 % Basophils (%) (Auto) 0.6 0.0-2.0 % Neutrophils # (Auto) 7.3 1.6-8.6 10 ^3/uL Lymphocytes # (Auto) 0.2 L 0.4-5.4 10 ^3/uL Monocytes # (Auto) 0.7 0-1.3 10 ^3/uL Eosinophils # (Auto) 0 0-0.8 10 ^3/uL Basophils # (Auto) 0.1 0-0.2 10 ^3/uL Nucleated Red Blood Cells 0.3 % Sodium Level 141 136-145 mmol/L Potassium Level 4.2 3.5-5.1 mmol/L Chloride Level 109 H 98-107 mmol/L Carbon Dioxide Level 21 20-31 mmol/L Anion Gap 11 5-15 Blood Urea Nitrogen 41 H 9-23 mg/dL Creatinine 1.49 H 0.700-1.30 mg/dL Glomerular Filtration Rate Calc 46 >90 mL/min BUN/Creatinine Ratio 27.5 H 10.0-20.0 Serum Glucose 110 H 74-106 mg/dL Hemoglobin A1c 5.4 <5.7 % A1C Calcium Level 10.0 8.7-10.4 mg/dL Triglycerides Level 107 < 150 mg/dL Cholesterol Level 111 < 200 mg/dL LDL Cholesterol 54 < 100 mg/dL HDL Cholesterol 41 40-59 mg/dL Thyroid Stimulating Hormone (TSH) 0.64 0.55-4.78 uIU/mL Urine Color Light-yellow Yellow Urine Clarity Turbid H Clear Urine pH 6.0 5.0-9.0 Urine Specific [place] 1.016 1.001-1.035 Urine Protein 2+ H Negative Urine Ketones Negative Negative Urine Blood 2+ H Negative /uL Urine Nitrite Negative Negative Urine Bilirubin Negative Negative Urine Urobilinogen Normal Negative mg/dL Urine Leukocyte Esterase 3+ Negative /uL Urine RBC 6 0 - 3 /hpf Urine WBC Clumps Present None Seen /hpf Urine Microscopic WBC 641 H 0-3 /HPF Urine Squamous Epithelial Cells None seen <5 /hpf Urine Bacteria None seen None Seen /hpf Urine Mucus Few None Seen Urine Glucose Normal Normal mg/dL Urine Opiates Screen Neg NEGATIVE Urine Fentanyl Screen Neg NEGATIVE Urine Barbiturates Screen Neg NEGATIVE Urine Phencyclidine Screen Neg NEGATIVE Urine Amphetamines Screen Neg NEGATIVE Urine Benzodiazepines Screen Neg NEGATIVE Urine Cocaine Screen Neg NEGATIVE Urine Cannabinoids Screen Neg NEGATIVE Assessment Urinary tract infection. NSTEMI, likely type 2 secondary to above. Rule out structural heart disease. Severe coronary artery disease status post quintuple bypass surgery (on Plavix) . Hypertension. Dyslipidemia. Chronic kidney disease. BPH. History of TIA. Plan/Recommendation I agree with your ongoing assessment and care of plan. Patient has been seen by Amy Pérez NP on my behalf, her and I discussed the plan with the patient. We will proceed with obtaining a transthoracic echocardiogram to evaluate cardiac function. Elevated troponin level likely secondary to demand mismatch ischemia from urinary tract infection. Continue with single antiplatelet therapy and lipid-lowering agent. Continue with blood pressure control. Continue with close cardiac surveillance. Additional plan as per the hospital course. Plan discussed with: Patient NYHA Physical activity limitations: NA Date of Service: Oct 21, 2024 Billing Provider: MICHAEL FIELD MD Cardiology Common Codes: [id number] INP/OBS CARE (High) MICHAEL FIELD MD Oct 21, 2024 21:40
[2024-10-22] VITALS (8 sets, daily range): BP systolic 131–178; BP diastolic 58–74; PULSE 67–95; RESP 16–20; TEMP 97.4–100.1; O2SAT 95–99
[2024-10-22 05:52] LABS: Basophils # (auto) 0 10 ^3/uL (0-0.2); Basophils % (auto) 0.2 % (0.0-2.0); Eosinophils # (auto) 0 10 ^3/uL (0-0.8); Lymphocytes # (auto) 0.6 10 ^3/uL (0.4-5.4); Monocytes # (auto) 0.7 10 ^3/uL (0-1.3); Neutrophils # (auto) 9.3 10 ^3/uL (1.6-8.6); White Blood Cell 10.6 10^3/uL (4.4-10.8)
[2024-10-22 05:53] LABS: Hematocrit 36.3 % (41.0-53.0); Hemoglobin 12.5 g/dL (13.5-17.5); Lymphocytes % (auto) 5.6 % (10.0-50.0); Mean Corpuscular Hemoglobin 34.7 pg (28.0-32.0); Mean Corpuscular Hgb Conc. 34.3 g/dL (32.0-36.0); Mean Corpuscular Volume 100.9 fL (80.0-100.0); Monocytes % (auto) 6.6 % (0.0-12.0); Neutrophils % (auto) 87.6 % (37.0-80.0); Platelet Count (auto) 105 10^3/uL (140-450); Red Blood Cells 3.59 10^6/uL (4.5-5.90); Red Cell Distribution Width 13.8 % (11.8-14.3)
[2024-10-22 06:08] LABS: Alanine Aminotransferase 30 U/L (7-40); Alkaline Phosphatase 89 U/L (46-116); Anion Gap 10 (5-15); Aspartate Aminotransferase 36 U/L (13-40); BUN/Creatinine Ratio 22.8 (10.0-20.0); Calcium 9.3 mg/dL (8.7-10.4); Carbon Dioxide 21 mmol/L (20-31); Potassium 4.4 mmol/L (3.5-5.1); Sodium 139 mmol/L (136-145)
[2024-10-22 06:09] LABS: Bilirubin, Total 1.1 mg/dL (0.2-1.0)
[2024-10-22 06:15] LABS: Blood Urea Nitrogen 36 mg/dL (9-23); Chloride 108 mmol/L (98-107); Glucose 125 mg/dL (74-106)
[2024-10-22] MEDS: LISINOPRIL 5 MG TAB PO SCH (10:27)
[2024-10-22] MEDS: METOPROLOL TARTRATE 25 MG TAB PO SCH (10:27)
[2024-10-22] MEDS: CLOPIDOGREL BISULFATE 75 MG TAB PO SCH (10:28)
[2024-10-22] MEDS: TAMSULOSIN HYDROCHLORIDE 0.4 MG CAP PO SCH (10:28)
[2024-10-22] MEDS: FERROUS SULFATE 325mg EC TAB PO SCH (10:29)
--- NOTE | 2024-10-22 11:42 | DVHPN2 ---
Reviewed: Care Plan, H&P, Labs, Medications, Previous Orders, Radiology Changes from previous H/P or p: No Changes Genitourinary: Frequency Objective Vitals Vital Signs Date Time Temp Pulse Resp B/P (MAP) Pulse Ox O2 Delivery O2 Flow Rate FiO2 10/22/24 10:27 166/69 10/22/24 10:27 69 10/22/24 09:00 99.8 16 96 99.8 10/21/24 20:00 Room Air* 0 21 Intake/Output Intake and Output 10/22/24 07:00 Intake Total 1300 ml Output Total 1500 ml Balance -200 ml Intake Oral 800 ml IV Total 500 ml Output Urine Total 1500 ml Medications Current Medications Medications Dose Ordered Sig/Rigo Route Start Time Stop Time Status Last Admin Dose Admin Ceftriaxone Sodium 50 ml @ 100 mls/hr DAILY@09 IV 10/21/24 11:30 10/22/24 10:26 100 MLS/HR Ondansetron HCl 4 mg Q4HP PRN IV 10/21/24 11:30 Acetaminophen 650 mg Q6HP PRN PO 10/21/24 11:30 10/22/24 03:46 650 MG Nitroglycerin 0.4 mg Q5MINP PRN SL 10/21/24 11:30 Morphine Sulfate 2 mg Q30M PRN IV 10/21/24 11:30 Aspirin 81 mg DAILY PO 10/21/24 11:30 10/22/24 10:28 81 MG Clopidogrel Bisulfate 75 mg DAILY PO 10/22/24 10:00 10/22/24 10:28 75 MG Metoprolol Tartrate 25 mg DAILY PO 10/22/24 10:00 10/22/24 10:27 25 MG Tamsulosin HCl 0.4 mg DAILY PO 10/22/24 10:00 10/22/24 10:28 0.4 MG Ferrous Sulfate 325 mg DAILY PO 10/22/24 10:00 10/22/24 10:29 325 MG Patient Own Medication 1 tab DAILY PO 10/22/24 10:00 Lisinopril 10 mg DAILY PO 10/22/24 10:00 10/22/24 10:27 10 MG Atorvastatin Calcium 10 mg HS PO 10/21/24 22:00 10/21/24 21:04 10 MG Laboratory Results Laboratory Tests 10/22/24 04:46 Chemistry Test 10/22/24 04:46 Albumin 4.0 g/dL (3.2-4.8) Calcium Level 9.3 mg/dL (8.7-10.4) Total Protein 7.0 g/dL (5.7-8.2) LFT Test 10/22/24 04:46 Alanine Aminotransferase (ALT) 30 U/L (7-40) Alkaline Phosphatase 89 U/L (46-116) Aspartate Amino Transferase (AST) 36 U/L (13-40) Total Bilirubin 1.1 mg/dL (0.2-1.0) H Urinalysis Test 10/21/24 07:56 Urine Color Light-yellow (Yellow) Urine Clarity Turbid (Clear) H Urine pH 6.0 (5.0-9.0) Urine Specific [place] 1.016 (1.001-1.035) Urine Protein 2+ (Negative) H Urine Ketones Negative (Negative) Urine Blood 2+ /uL (Negative) H Urine Nitrite Negative (Negative) Urine Bilirubin Negative (Negative) Urine Urobilinogen Normal mg/dL (Negative) Urine Leukocyte Esterase 3+ /uL (Negative) Urine RBC 6 /hpf (0 - 3) Urine WBC Clumps Present /hpf (None Seen) Urine Microscopic WBC 641 /HPF (0-3) H Urine Squamous Epithelial Cells None seen /hpf (<5) Urine Bacteria None seen /hpf (None Seen) Urine Mucus Few (None Seen) Urine Glucose Normal mg/dL (Normal) Labs and/or images reviewed: Labs reviewed by me, Image(s) reviewed by me Assessment/Plan Assessment/Plan Septic shock secondary to urinary tract infection: Blood cultures urine cultures Acute Urinary tract infection: Rocephin NSTEMI, likely type 2 secondary to above Rule out structural heart disease Severe coronary artery disease status post quintuple bypass surgery (on Plavix) , cardiology consult by Dr. Guillaume appreciated Hypertension Dyslipidemia Chronic kidney disease BPH History of TIA Time spent 70 minutes Advanced care planning time 20 minutes Patient is full code Plan discussed with: Patient My Orders Orders - NICOLE CRAVEN MD Procedure Category Date Status Time Blood Culture [facility] 10/22/24 Transmitted 11:36 Urine Bacterial [facility] 10/22/24 Transmitted Culture 11:36 Date of Service: Oct 22, 2024 Billing Provider: NICOLE CRAVEN MD Common Visit Codes: [id number] CARE 30-74 MIN NICOLE CRAVEN MD Oct 22, 2024 11:42
--- NOTE | 2024-10-22 21:14 | DVHPN2 ---
Progress Note - Dictate Date Seen: Oct 22, 2024 Medical Necessity Reason Pt with a Central, PICC or Fol: No Subjective Patient was seen and evaluated in follow up. Patient is complaining of generalized pain/weakness. 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 Telemetry reviewed. vital signs Vital Sign Date Time Temp Pulse Resp B/P (MAP) Pulse Ox O2 Delivery O2 Flow Rate FiO2 10/22/24 20:00 Room Air* 0 21 10/22/24 17:00 99.6 67 16 140/58 (85) 97 99.6 Total Intake and Output 10/21/24 10/21/24 10/22/24 15:00 23:00 07:00 Intake Total 500 ml 0 ml 800 ml Output Total 100 ml 400 ml 1000 ml Balance 400 ml -400 ml -200 ml medications Current Medications Medications Dose Ordered Sig/Rigo Route Start Time Stop Time Status Last Admin Dose Admin Ceftriaxone Sodium 50 ml @ 100 mls/hr DAILY@09 IV 10/21/24 11:30 10/22/24 10:26 100 MLS/HR Ondansetron HCl 4 mg Q4HP PRN IV 10/21/24 11:30 Acetaminophen 650 mg Q6HP PRN PO 10/21/24 11:30 10/22/24 03:46 650 MG Nitroglycerin 0.4 mg Q5MINP PRN SL 10/21/24 11:30 Morphine Sulfate 2 mg Q30M PRN IV 10/21/24 11:30 Aspirin 81 mg DAILY PO 10/21/24 11:30 10/22/24 10:28 81 MG Clopidogrel Bisulfate 75 mg DAILY PO 10/22/24 10:00 10/22/24 10:28 75 MG Metoprolol Tartrate 25 mg DAILY PO 10/22/24 10:00 10/22/24 10:27 25 MG Tamsulosin HCl 0.4 mg DAILY PO 10/22/24 10:00 10/22/24 10:28 0.4 MG Ferrous Sulfate 325 mg DAILY PO 10/22/24 10:00 10/22/24 10:29 325 MG Patient Own Medication 1 tab DAILY PO 10/22/24 10:00 Lisinopril 10 mg DAILY PO 10/22/24 10:00 10/22/24 10:27 10 MG Atorvastatin Calcium 10 mg HS PO 10/21/24 22:00 10/21/24 21:04 10 MG objective GENERAL: Alert and oriented x 3. No acute distress. EYES: PERRL, EOMI. Anicteric. HENT: Moist mucous membranes. LUNGS: Clear to auscultation bilaterally. CARDIOVASCULAR: Regular rate and rhythm. ABDOMEN: Soft, nontender and nondistended. EXTREMITIES: No edema. NEUROLOGIC: No focal neurological deficits. SKIN: Warm, dry. laboratory and microbiology Laboratory Tests 10/22/24 04:46 Test 10/22/24 04:46 Range/Units Serum Glucose 125 H 74-106 mg/dL Problem List Urinary tract infection. NSTEMI, likely type 2 secondary to above. Rule out structural heart disease. Severe coronary artery disease status post quintuple bypass surgery (on Plavix) . Hypertension. Dyslipidemia. Chronic kidney disease. BPH. History of TIA. Assessment/Plan Continued all current supportive medical care. Aspirin, Lipitor, Plavix, Metoprolol. IV antibiotics as ordered. Lisinopril. Morphine for pain management. Nitro SL. Additional plan as per the hospital course. Plan discussed with: Patient MICHAEL FIELD MD Oct 22, 2024 20:44
[2024-10-23] VITALS (8 sets, daily range): BP systolic 131–153; BP diastolic 59–70; PULSE 67–107; RESP 15–20; TEMP 97.5–99.1; O2SAT 95–98
--- NOTE | 2024-10-23 12:54 | DVHPN2 ---
Reviewed: Care Plan, H&P, Labs, Medications, Previous Orders, Radiology Changes from previous H/P or p: No Changes Genitourinary: Frequency Objective Vitals Vital Signs Date Time Temp Pulse Resp B/P (MAP) Pulse Ox O2 Delivery O2 Flow Rate FiO2 10/23/24 10:00 68 131/59 10/23/24 08:50 97.5 18 96 97.5 10/23/24 08:00 Room Air* 0 21 Intake/Output Intake and Output 10/23/24 07:00 Intake Total 1220 ml Output Total 900 ml Balance 320 ml Intake Oral 1170 ml IV Total 50 ml Output Urine Total 900 ml # Bowel Movements 2 Medications Current Medications Medications Dose Ordered Sig/Rigo Route Start Time Stop Time Status Last Admin Dose Admin Ceftriaxone Sodium 50 ml @ 100 mls/hr DAILY@09 IV 10/21/24 11:30 10/23/24 08:35 100 MLS/HR Ondansetron HCl 4 mg Q4HP PRN IV 10/21/24 11:30 Acetaminophen 650 mg Q6HP PRN PO 10/21/24 11:30 10/22/24 03:46 650 MG Nitroglycerin 0.4 mg Q5MINP PRN SL 10/21/24 11:30 Morphine Sulfate 2 mg Q30M PRN IV 10/21/24 11:30 Aspirin 81 mg DAILY PO 10/21/24 11:30 10/23/24 08:36 81 MG Clopidogrel Bisulfate 75 mg DAILY PO 10/22/24 10:00 10/23/24 08:36 75 MG Metoprolol Tartrate 25 mg DAILY PO 10/22/24 10:00 10/23/24 08:36 25 MG Tamsulosin HCl 0.4 mg DAILY PO 10/22/24 10:00 10/23/24 08:35 0.4 MG Ferrous Sulfate 325 mg DAILY PO 10/22/24 10:00 10/23/24 08:35 325 MG Patient Own Medication 1 tab DAILY PO 10/22/24 10:00 Lisinopril 10 mg DAILY PO 10/22/24 10:00 10/23/24 08:36 10 MG Atorvastatin Calcium 10 mg HS PO 10/21/24 22:00 10/22/24 21:27 10 MG Laboratory Results Laboratory Tests 10/22/24 04:46 Urinalysis Test 10/21/24 07:56 Urine Color Light-yellow (Yellow) Urine Clarity Turbid (Clear) H Urine pH 6.0 (5.0-9.0) Urine Specific [place] 1.016 (1.001-1.035) Urine Protein 2+ (Negative) H Urine Ketones Negative (Negative) Urine Blood 2+ /uL (Negative) H Urine Nitrite Negative (Negative) Urine Bilirubin Negative (Negative) Urine Urobilinogen Normal mg/dL (Negative) Urine Leukocyte Esterase 3+ /uL (Negative) Urine RBC 6 /hpf (0 - 3) Urine WBC Clumps Present /hpf (None Seen) Urine Microscopic WBC 641 /HPF (0-3) H Urine Squamous Epithelial Cells None seen /hpf (<5) Urine Bacteria None seen /hpf (None Seen) Urine Mucus Few (None Seen) Urine Glucose Normal mg/dL (Normal) Microbiology Microbiology Date/Time Source Procedure Growth Status 10/22/24 12:12 Blood Blood Culture - Preliminary NO GROWTH AFTER 24 HOURS OF INCUBATION. Resulted Labs and/or images reviewed: Labs reviewed by me, Image(s) reviewed by me Assessment/Plan Assessment/Plan Septic shock secondary to urinary tract infection: Blood cultures negative, urine cultures pending Acute Urinary tract infection: Rocephin NSTEMI, likely type 2 secondary to above Rule out structural heart disease Severe coronary artery disease status post quintuple bypass surgery (on Plavix) , cardiology consult by Dr. Guillaume appreciated Hypertension Acute urinary retention secondary to enlarged prostate: CT abdomen pelvis without contrast ordered Dyslipidemia Chronic kidney disease BPH History of TIA Time spent 50 minutes Advanced care planning time 20 minutes Patient is full code Plan discussed with: Patient Date of Service: Oct 23, 2024 Billing Provider: NICOLE CRAVEN MD Common Visit Codes: [id number] INP/OBS CARE(HIGH) NICOLE CRAVEN MD Oct 23, 2024 12:54
--- NOTE | 2024-10-23 15:55 | DVH ---
Procedure: CT CT AB PEL WO CON-NO ORAL OR IV 10/23/2024 01:38 PM Indication: Urinary retention Comparison Study: None Technique: Axial images were obtained and reformatted in coronal and sagittal planes. All CT scans at this medical facility are performed using dose modulation techniques as appropriate to a performed e xam including the following: Automated exposure control was utilized; adjustment of the MA and/or KV according to patient size; and use of iterative reconstruction technique. CT Dose: CTDI volume is 7.9 3 mGy. Dose-length product is 473.41 mGy*cm FINDINGS: Lower Chest: Bibasilar subpleural reticular opacities likely interstitial fibrosis. Mild cardiomegal y and coronary artery calcification. Suggestion of anemia.. Hepatobiliary: Unremarkable. Spleen: Unremarkable. Pancreas: Unremarkable. Adrenal Glands: Unremarkable. tract: The kidneys are normal in size bilaterally without hydronephrosis or nephrolithiasis. Bilat eral renal cysts are seen measuring up to 11 cm in the upper pole of the right kidney. Suboptimal gavin luation of the urinary bladder due to lack of distention and decompression by Mckeon catheter. Bladder wall thickening and pericystic fat stranding is seen. GI tract: The stomach is grossly normal in appearance. No evidence of small bowel obstruction. There is descending and sigmoid diverticulosis without diverticulitis. The appendix is normal. Lymphatics: No mesenteric, retroperitoneal or periportal lymphadenopathy. Vasculature: The abdominal aorta is normal in caliber. Diffuse calcified plaque formation is noted. Pelvic Organs: Prostate is mildly enlarged. Bones/soft tissues: Superior dislocation of the left femoral head from the acetabular fossa with defo rmities of the femoral head and acetabulum suggesting a chronic dislocation. Multilevel degenerative disc disease and posterior facet arthropathy of the lumbar spine noted. Other: None. IMPRESSION: 1. Findings suggestive of cystitis. Evaluation of the bladder is suboptimal due to decompression by a Mckeon catheter but there appears to be bladder wall thickening and pericystic inflammation. Correlat e with urinalysis. There is no hydronephrosis or hydroureter. 2. Mild edema along the bilateral pelvic sidewalls, which nonspecific and probably related to cystiti s. No pelvic sidewall or inguinal lymphadenopathy noted. 3. Multiple bilateral renal cysts measuring up to 11 cm, incompletely evaluated without IV contrast. 4. 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
--- NOTE | 2024-10-23 23:52 | DVHPN2 ---
Progress Note - Dictate Date Seen: Oct 23, 2024 Medical Necessity Reason Pt with a Central, PICC or Fol: No Subjective Patient was seen and evaluated in follow up. Patient is complaining of generalized pain. CT ABD PEL showed findings suggestive of cystitis. There is no hydronephrosis or hydroureter. Mild edema along the bilateral pelvic sidewalls, which nonspecific and probably related to cystitis. No pelvic sidewall or inguinal lymphadenopathy noted. Multiple bilateral renal cysts measuring up to 11 cm, incompletely evaluated without IV contrast. 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 Telemetry reviewed. vital signs Vital Sign Date Time Temp Pulse Resp B/P (MAP) Pulse Ox O2 Delivery O2 Flow Rate FiO2 10/23/24 13:00 97.6 68 17 131/59 (83) 98 97.6 10/23/24 08:00 Room Air* 0 21 Total Intake and Output 10/22/24 10/22/24 10/23/24 15:00 23:00 07:00 Intake Total 290 ml 480 ml 450 ml Output Total 500 ml 400 ml Balance 290 ml -20 ml 50 ml medications Current Medications Medications Dose Ordered Sig/Rigo Route Start Time Stop Time Status Last Admin Dose Admin Ceftriaxone Sodium 50 ml @ 100 mls/hr DAILY@09 IV 10/21/24 11:30 10/23/24 08:35 100 MLS/HR Ondansetron HCl 4 mg Q4HP PRN IV 10/21/24 11:30 Acetaminophen 650 mg Q6HP PRN PO 10/21/24 11:30 10/22/24 03:46 650 MG Nitroglycerin 0.4 mg Q5MINP PRN SL 10/21/24 11:30 Morphine Sulfate 2 mg Q30M PRN IV 10/21/24 11:30 Aspirin 81 mg DAILY PO 10/21/24 11:30 10/23/24 08:36 81 MG Clopidogrel Bisulfate 75 mg DAILY PO 10/22/24 10:00 10/23/24 08:36 75 MG Metoprolol Tartrate 25 mg DAILY PO 10/22/24 10:00 10/23/24 08:36 25 MG Tamsulosin HCl 0.4 mg DAILY PO 10/22/24 10:00 10/23/24 08:35 0.4 MG Ferrous Sulfate 325 mg DAILY PO 10/22/24 10:00 10/23/24 08:35 325 MG Patient Own Medication 1 tab DAILY PO 10/22/24 10:00 Lisinopril 10 mg DAILY PO 10/22/24 10:00 10/23/24 08:36 10 MG Atorvastatin Calcium 10 mg HS PO 10/21/24 22:00 10/22/24 21:27 10 MG objective GENERAL: Alert and oriented x 3. No acute distress. EYES: PERRL, EOMI. Anicteric. HENT: Moist mucous membranes. LUNGS: Clear to auscultation bilaterally. CARDIOVASCULAR: Regular rate and rhythm. ABDOMEN: Soft, nontender and nondistended. EXTREMITIES: No edema. NEUROLOGIC: No focal neurological deficits. SKIN: Warm, dry. laboratory and microbiology Laboratory Tests 10/22/24 04:46 Test 10/22/24 04:46 Range/Units Serum Glucose 125 H 74-106 mg/dL Problem List Urinary tract infection. NSTEMI, likely type 2 secondary to above. Rule out structural heart disease. Severe coronary artery disease status post quintuple bypass surgery (on Plavix) . Hypertension. Dyslipidemia. Chronic kidney disease. BPH. History of TIA. Assessment/Plan Continued all current supportive medical care. Aspirin, Lipitor, Plavix, Metoprolol. IV antibiotics as ordered. Lisinopril. Morphine for pain management. Nitro SL. Additional plan as per the hospital course. Plan discussed with: Patient MICHAEL FIELD MD Oct 23, 2024 16:24
[2024-10-24] VITALS (8 sets, daily range): BP systolic 130–153; BP diastolic 60–69; PULSE 62–74; RESP 15–18; TEMP 97.8–98.9; O2SAT 96–98
--- NOTE | 2024-10-24 14:30 | DVHPN2 ---
Reviewed: Care Plan, H&P, Labs, Medications, Previous Orders, Radiology Changes from previous H/P or p: No Changes Genitourinary: Frequency Objective Vitals Vital Signs Date Time Temp Pulse Resp B/P (MAP) Pulse Ox O2 Delivery O2 Flow Rate FiO2 10/24/24 13:00 98.3 62 15 134/66 (88) 98 98.3 10/24/24 08:00 Room Air* 0 21 Intake/Output Intake and Output 10/24/24 07:00 Intake Total 1050 ml Output Total 750 ml Balance 300 ml Intake Oral 1000 ml IV Total 50 ml Output Urine Total 750 ml # Bowel Movements 1 Medications Current Medications Medications Dose Ordered Sig/Rigo Route Start Time Stop Time Status Last Admin Dose Admin Ceftriaxone Sodium 50 ml @ 100 mls/hr DAILY@09 IV 10/21/24 11:30 10/24/24 08:39 100 MLS/HR Ondansetron HCl 4 mg Q4HP PRN IV 10/21/24 11:30 Acetaminophen 650 mg Q6HP PRN PO 10/21/24 11:30 10/24/24 01:27 650 MG Nitroglycerin 0.4 mg Q5MINP PRN SL 10/21/24 11:30 Morphine Sulfate 2 mg Q30M PRN IV 10/21/24 11:30 Aspirin 81 mg DAILY PO 10/21/24 11:30 10/24/24 08:40 81 MG Clopidogrel Bisulfate 75 mg DAILY PO 10/22/24 10:00 10/24/24 08:40 75 MG Metoprolol Tartrate 25 mg DAILY PO 10/22/24 10:00 10/24/24 08:41 25 MG Tamsulosin HCl 0.4 mg DAILY PO 10/22/24 10:00 10/24/24 08:40 0.4 MG Ferrous Sulfate 325 mg DAILY PO 10/22/24 10:00 10/24/24 08:41 325 MG Patient Own Medication 1 tab DAILY PO 10/22/24 10:00 Lisinopril 10 mg DAILY PO 10/22/24 10:00 10/24/24 08:40 10 MG Atorvastatin Calcium 10 mg HS PO 10/21/24 22:00 10/23/24 22:12 10 MG Laboratory Results Laboratory Tests 10/22/24 04:46 Urinalysis Test 10/21/24 07:56 Urine Color Light-yellow (Yellow) Urine Clarity Turbid (Clear) H Urine pH 6.0 (5.0-9.0) Urine Specific [place] 1.016 (1.001-1.035) Urine Protein 2+ (Negative) H Urine Ketones Negative (Negative) Urine Blood 2+ /uL (Negative) H Urine Nitrite Negative (Negative) Urine Bilirubin Negative (Negative) Urine Urobilinogen Normal mg/dL (Negative) Urine Leukocyte Esterase 3+ /uL (Negative) Urine RBC 6 /hpf (0 - 3) Urine WBC Clumps Present /hpf (None Seen) Urine Microscopic WBC 641 /HPF (0-3) H Urine Squamous Epithelial Cells None seen /hpf (<5) Urine Bacteria None seen /hpf (None Seen) Urine Mucus Few (None Seen) Urine Glucose Normal mg/dL (Normal) Microbiology Microbiology Date/Time Source Procedure Growth Status 10/23/24 18:35 Voided Urine Urine Culture - Preliminary Resulted 10/22/24 12:12 Blood Blood Culture - Preliminary NO GROWTH AFTER 48 HOURS OF INCUBATION. Resulted Labs and/or images reviewed: Labs reviewed by me, Image(s) reviewed by me Assessment/Plan Assessment/Plan Septic shock secondary to urinary tract infection: Blood cultures negative, urine cultures neg Acute Urinary tract infection: Rocephin NSTEMI, likely type 2 secondary to above Rule out structural heart disease Severe coronary artery disease status post quintuple bypass surgery (on Plavix) , cardiology consult by Dr. Guillaume appreciated Hypertension Acute urinary retention secondary to enlarged prostate: CT abdomen pelvis without contrast shows bilateral renal cysts, urology consult placed Chronically displaced left hip joint Dyslipidemia Chronic kidney disease BPH History of TIA Time spent 50 minutes Advanced care planning time 20 minutes Patient is full code Plan discussed with: Patient My Orders Orders - NICOLE CRAVEN MD Procedure Category Date Status Time Cleanse Wound With TRACY 10/23/24 In Process Wound Clean 13:03 * Wound Consult CONS 10/23/24 Transmitted Date of Service: Oct 24, 2024 Billing Provider: NICOLE CRAVEN MD Common Visit Codes: [id number] INP/OBS CARE(HIGH) NICOLE CRAVEN MD Oct 24, 2024 14:30
--- NOTE | 2024-10-24 15:57 | DVHINCON2 ---
Date of service: Oct 24, 2024 Referring Physician Damir Reason for Consultation renal cyst History of Present Illness Exam Limitations: No limitations HPI 84-year-old male with past medical history of hypertension, TIA, and CABG x5 in 2007 at [facility] who presents to the ED for generalized weakness. Patient states that he was getting up to go use the restroom with his front wheel walker sat on the toilet then got up and stated that he was too weak and fell on his right elbow with noted bleeding. Patient also states that he was having frequency to go to void. Patient reports that he lives at home with his family. Patient denies any chest pain, shortness of breath, fever, chills, lightheadedness, dizziness, abdominal pain, nausea, vomiting, diarrhea, recent sick contacts, recent ingestion of spoiled food, or recent travels. Home Meds Reported Medications Clopidogrel Bisulfate (CLOPIDOGREL) 75 Mg Tab, 1 TAB PO DAILY 10/21/24 Isosorbide Mononitrate (Isosorbide Mononitrate Er) 30 Mg Tab, 1 TAB PO DAILY 10/21/24 Ferrous Sulfate (Ferosul) 325 Mg Tab, 1 TAB PO DAILY 10/21/24 Rosuvastatin Calcium (Rosuvastatin Calcium) 5 Mg Tab, 1 TAB PO DAILY 10/21/24 Metoprolol Tartrate (Lopressor) 25 Mg Tb, 1 TAB PO 10/21/24 Lisinopril (Lisinopril) 10 Mg Tab, 1 TAB PO DAILY 10/21/24 Tamsulosin Hcl (Tamsulosin Hcl) 0.4 Mg Cap, 1 CAP PO 10/21/24 Past Medical History Patient Family History: Patient reports no known family medical history. H&P Exam Vital Signs Vital Signs Date Time Temp Pulse Resp B/P (MAP) Pulse Ox O2 Delivery O2 Flow Rate FiO2 10/24/24 13:00 98.3 62 15 134/66 (88) 98 98.3 10/24/24 08:00 Room Air* 0 21 Labs/Xrays [address] [address] Ph: [phone] DIAGNOSTIC IMAGING Diagnostic Imaging Report : [id number] Signed PATIENT: MADYSON KHAN ACCT: [id number] UNIT: [id number] : 1940 LOC: [facility] ROOM / BED: [facility] / B AGE / SEX: 84 / M ADM STATUS: ADM IN SERVICE 1253 ORDERING PHYSICIAN: NICOLE CRAVEN MD PROCEDURE(s): ABPL - CT AB PEL WO CON-NO ORAL OR IV REASON: Urinary retention ORDER NUMBER(s): [id number], ACCESSION NUMBER(s): [id number] Procedure: CT CT AB PEL WO CON-NO ORAL OR IV 10/23/2024 01:38 PM Indication: Urinary retention Comparison Study: None Technique: Axial images were obtained and reformatted in coronal and sagittal planes. All CT scans at this medical facility are performed using dose modulation techniques as appropriate to a performed exam including the following: Automated exposure control was utilized; adjustment of the MA and/or KV according to patient size; and use of iterative reconstruction technique. CT Dose: CTDI volume is 7.93 mGy. Dose-length product is 473.41 mGy*cm FINDINGS: Lower Chest: Bibasilar subpleural reticular opacities likely interstitial fibrosis. Mild cardiomegaly and coronary artery calcification. Suggestion of anemia.. Hepatobiliary: Unremarkable. Spleen: Unremarkable. Pancreas: Unremarkable. Adrenal Glands: Unremarkable. tract: The kidneys are normal in size bilaterally without hydronephrosis or nephrolithiasis. Bilateral renal cysts are seen measuring up to 11 cm in the upper pole of the right kidney. Suboptimal evaluation of the urinary bladder due to lack of distention and decompression by Mckeon catheter. Bladder wall thickening and pericystic fat stranding is seen. GI tract: The stomach is grossly normal in appearance. No evidence of small bowel obstruction. There is descending and sigmoid diverticulosis without diverticulitis. The appendix is normal. Lymphatics: No mesenteric, retroperitoneal or periportal lymphadenopathy. Vasculature: The abdominal aorta is normal in caliber. Diffuse calcified plaque formation is noted. Pelvic Organs: Prostate is mildly enlarged. Bones/soft tissues: Superior dislocation of the left femoral head from the acetabular fossa with deformities of the femoral head and acetabulum suggesting a chronic dislocation. Multilevel degenerative disc disease and posterior facet arthropathy of the lumbar spine noted. Other: None. IMPRESSION: 1. Findings suggestive of cystitis. Evaluation of the bladder is suboptimal due to decompression by a Mckeon catheter but there appears to be bladder wall thickening and pericystic inflammation. Correlate with urinalysis. There is no hydronephrosis or hydroureter. 2. Mild edema along the bilateral pelvic sidewalls, which nonspecific and probably related to cystitis. No pelvic sidewall or inguinal lymphadenopathy noted. 3. Multiple bilateral renal cysts measuring up to 11 cm, incompletely evaluated without IV contrast. 4. 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 ATED BY: REYNA DIETZ MD DICTATED DATE/TIME: 10/23/241551 SIGNED BY: REYNA DIETZ MD SIGNED DATE/TIME: 10/23/241551 CC: Labs Test 10/22/24 04:46 10/21/24 10:13 10/21/24 08:14 10/21/24 07:56 Range/Units White Blood Count 10.6 # 4.4-10.8 10^3/uL Red Blood Count 3.59 L 4.5-5.90 10^6/uL Hemoglobin 12.5 L 13.5-17.5 g/dL Hematocrit 36.3 L 41.0-53.0 % Mean Corpuscular Volume 100.9 H 80.0-100.0 fL Mean Corpuscular Hemoglobin 34.7 H 28.0-32.0 pg Mean Corpuscular Hemoglobin Concent 34.3 32.0-36.0 g/dL Red Cell Distribution Width 13.8 11.8-14.3 % Platelet Count 105 L 140-450 10^3/uL Mean Platelet Volume 8.3 6.9-10.8 fL Neutrophils (%) (Auto) 87.6 H 37.0-80.0 % Lymphocytes (%) (Auto) 5.6 L 10.0-50.0 % Monocytes (%) (Auto) 6.6 0.0-12.0 % Eosinophils (%) (Auto) 0.0 0.0-7.0 % Basophils (%) (Auto) 0.2 0.0-2.0 % Neutrophils # (Auto) 9.3 H 1.6-8.6 10 ^3/uL Lymphocytes # (Auto) 0.6 0.4-5.4 10 ^3/uL Monocytes # (Auto) 0.7 0-1.3 10 ^3/uL Eosinophils # (Auto) 0 0-0.8 10 ^3/uL Basophils # (Auto) 0 0-0.2 10 ^3/uL Nucleated Red Blood Cells 0.0 % Sodium Level 139 136-145 mmol/L Potassium Level 4.4 3.5-5.1 mmol/L Chloride Level 108 H 98-107 mmol/L Carbon Dioxide Level 21 20-31 mmol/L Anion Gap 10 5-15 Blood Urea Nitrogen 36 H 9-23 mg/dL Creatinine 1.58 H 0.700-1.30 mg/dL Glomerular Filtration Rate Calc 43 >90 mL/min BUN/Creatinine Ratio 22.8 H 10.0-20.0 Serum Glucose 125 H 74-106 mg/dL Calcium Level 9.3 8.7-10.4 mg/dL Total Bilirubin 1.1 H 0.2-1.0 mg/dL Aspartate Amino Transferase (AST) 36 13-40 U/L Alanine Aminotransferase (ALT) 30 7-40 U/L Alkaline Phosphatase 89 46-116 U/L Total Protein 7.0 5.7-8.2 g/dL Albumin 4.0 3.2-4.8 g/dL Troponin I High Sensitivity 66 *H </=54 ng/L Hemoglobin A1c 5.4 <5.7 % A1C Triglycerides Level 107 < 150 mg/dL Cholesterol Level 111 < 200 mg/dL LDL Cholesterol 54 < 100 mg/dL HDL Cholesterol 41 40-59 mg/dL Thyroid Stimulating Hormone (TSH) 0.64 0.55-4.78 uIU/mL Urine Color Light-yellow Yellow Urine Clarity Turbid H Clear Urine pH 6.0 5.0-9.0 Urine Specific [place] 1.016 1.001-1.035 Urine Protein 2+ H Negative Urine Ketones Negative Negative Urine Blood 2+ H Negative /uL Urine Nitrite Negative Negative Urine Bilirubin Negative Negative Urine Urobilinogen Normal Negative mg/dL Urine Leukocyte Esterase 3+ Negative /uL Urine RBC 6 0 - 3 /hpf Urine WBC Clumps Present None Seen /hpf Urine Microscopic WBC 641 H 0-3 /HPF Urine Squamous Epithelial Cells None seen <5 /hpf Urine Bacteria None seen None Seen /hpf Urine Mucus Few None Seen Urine Glucose Normal Normal mg/dL Urine Opiates Screen Neg NEGATIVE Urine Fentanyl Screen Neg NEGATIVE Urine Barbiturates Screen Neg NEGATIVE Urine Phencyclidine Screen Neg NEGATIVE Urine Amphetamines Screen Neg NEGATIVE Urine Benzodiazepines Screen Neg NEGATIVE Urine Cocaine Screen Neg NEGATIVE Urine Cannabinoids Screen Neg NEGATIVE Microbiology Date/Time Source Procedure Growth Status 10/23/24 18:35 Voided Urine Urine Culture - Preliminary Resulted 10/22/24 12:12 Blood Blood Culture - Preliminary NO GROWTH AFTER 48 HOURS OF INCUBATION. Resulted Assessment/Plan Problem List: (1) Renal cyst (2) UTI (urinary tract infection) Plan conservative management renal US in 6 months unless symptomatic then can refer pt to IR for percutaneous drainage urology signing off Plan discussed with: Other AYAN CROW [employer]ING [employer] Oct 24, 2024 15:57
--- NOTE | 2024-10-24 23:57 | DVHPN2 ---
Progress Note - Dictate Date Seen: Oct 24, 2024 Medical Necessity Reason Pt with a Central, PICC or Fol: No Subjective Patient was seen and evaluated in follow up. No overnight events. Patient is complaining of generalized pain.Prelim blood and urine cultures show no growth. Telemetry reviewed. vital signs Vital Sign Date Time Temp Pulse Resp B/P (MAP) Pulse Ox O2 Delivery O2 Flow Rate FiO2 10/24/24 21:00 98.6 69 18 130/63 (85) 98 98.6 10/24/24 20:00 Room Air* 0 21 Total Intake and Output 10/23/24 10/23/24 10/24/24 15:00 23:00 07:00 Intake Total 50 ml 600 ml 400 ml Output Total 450 ml 300 ml Balance 50 ml 150 ml 100 ml medications Current Medications Medications Dose Ordered Sig/Rigo Route Start Time Stop Time Status Last Admin Dose Admin Ceftriaxone Sodium 50 ml @ 100 mls/hr DAILY@09 IV 10/21/24 11:30 10/24/24 08:39 100 MLS/HR Ondansetron HCl 4 mg Q4HP PRN IV 10/21/24 11:30 Acetaminophen 650 mg Q6HP PRN PO 10/21/24 11:30 10/24/24 01:27 650 MG Nitroglycerin 0.4 mg Q5MINP PRN SL 10/21/24 11:30 Morphine Sulfate 2 mg Q30M PRN IV 10/21/24 11:30 Aspirin 81 mg DAILY PO 10/21/24 11:30 10/24/24 08:40 81 MG Clopidogrel Bisulfate 75 mg DAILY PO 10/22/24 10:00 10/24/24 08:40 75 MG Metoprolol Tartrate 25 mg DAILY PO 10/22/24 10:00 10/24/24 08:41 25 MG Tamsulosin HCl 0.4 mg DAILY PO 10/22/24 10:00 10/24/24 08:40 0.4 MG Ferrous Sulfate 325 mg DAILY PO 10/22/24 10:00 10/24/24 08:41 325 MG Patient Own Medication 1 tab DAILY PO 10/22/24 10:00 Lisinopril 10 mg DAILY PO 10/22/24 10:00 10/24/24 08:40 10 MG Atorvastatin Calcium 10 mg HS PO 10/21/24 22:00 10/24/24 21:16 10 MG objective GENERAL: Alert and oriented x 3. No acute distress. EYES: PERRL, EOMI. Anicteric. HENT: Moist mucous membranes. LUNGS: Clear to auscultation bilaterally. CARDIOVASCULAR: Regular rate and rhythm. ABDOMEN: Soft, nontender and nondistended. EXTREMITIES: No edema. NEUROLOGIC: No focal neurological deficits. SKIN: Warm, dry. laboratory and microbiology Laboratory Tests 10/22/24 04:46 Test 10/22/24 04:46 Range/Units Serum Glucose 125 H 74-106 mg/dL Problem List Urinary tract infection. NSTEMI, likely type 2 secondary to above. Rule out structural heart disease. Severe coronary artery disease status post quintuple bypass surgery (on Plavix) . Hypertension. Dyslipidemia. Chronic kidney disease. BPH. History of TIA. Assessment/Plan Continued all current supportive medical care. Aspirin, Lipitor, Plavix, Metoprolol. IV antibiotics as ordered. Lisinopril. Morphine for pain management. Nitro SL. Additional plan as per the hospital course. Plan discussed with: Patient MICHAEL FIELD MD Oct 24, 2024 23:57
[2024-10-25 01:00] VITALS: BP 134/75; PULSE 69; RESP 18; TEMP 98; O2SAT 98
[2024-10-25 05:00] VITALS: BP 136/73; PULSE 67; RESP 19; TEMP 98.3; O2SAT 97
[2024-10-25 08:00] VITALS: PULSE 71; PULSE 74; RESP 16
[2024-10-25 09:19] VITALS: BP 142/70; PULSE 71; RESP 18; TEMP 98.2; O2SAT 99
--- NOTE | 2024-10-25 10:55 | DVHPN2 ---
Reviewed: Care Plan, H&P, Labs, Medications, Previous Orders, Radiology Changes from previous H/P or p: No Changes Genitourinary: Frequency Objective Vitals Vital Signs Date Time Temp Pulse Resp B/P (MAP) Pulse Ox O2 Delivery O2 Flow Rate FiO2 10/25/24 09:30 71 142/70 10/25/24 09:19 98.2 18 99 98.2 10/24/24 20:00 Room Air* 0 21 Intake/Output Intake and Output 10/25/24 07:00 Intake Total 1450 ml Output Total 2000 ml Balance -550 ml Intake Oral 1400 ml IV Total 50 ml Output Urine Total 2000 ml Medications Current Medications Medications Dose Ordered Sig/Rigo Route Start Time Stop Time Status Last Admin Dose Admin Ceftriaxone Sodium 50 ml @ 100 mls/hr DAILY@09 IV 10/21/24 11:30 10/25/24 09:27 100 MLS/HR Ondansetron HCl 4 mg Q4HP PRN IV 10/21/24 11:30 Acetaminophen 650 mg Q6HP PRN PO 10/21/24 11:30 10/24/24 01:27 650 MG Nitroglycerin 0.4 mg Q5MINP PRN SL 10/21/24 11:30 Morphine Sulfate 2 mg Q30M PRN IV 10/21/24 11:30 Aspirin 81 mg DAILY PO 10/21/24 11:30 10/25/24 09:30 81 MG Clopidogrel Bisulfate 75 mg DAILY PO 10/22/24 10:00 10/25/24 09:29 75 MG Metoprolol Tartrate 25 mg DAILY PO 10/22/24 10:00 10/25/24 09:30 25 MG Tamsulosin HCl 0.4 mg DAILY PO 10/22/24 10:00 10/25/24 09:30 0.4 MG Ferrous Sulfate 325 mg DAILY PO 10/22/24 10:00 10/25/24 09:30 325 MG Patient Own Medication 1 tab DAILY PO 10/22/24 10:00 Lisinopril 10 mg DAILY PO 10/22/24 10:00 10/25/24 09:29 10 MG Atorvastatin Calcium 10 mg HS PO 10/21/24 22:00 10/24/24 21:16 10 MG Laboratory Results Laboratory Tests 10/22/24 04:46 Urinalysis Test 10/21/24 07:56 Urine Color Light-yellow (Yellow) Urine Clarity Turbid (Clear) H Urine pH 6.0 (5.0-9.0) Urine Specific [place] 1.016 (1.001-1.035) Urine Protein 2+ (Negative) H Urine Ketones Negative (Negative) Urine Blood 2+ /uL (Negative) H Urine Nitrite Negative (Negative) Urine Bilirubin Negative (Negative) Urine Urobilinogen Normal mg/dL (Negative) Urine Leukocyte Esterase 3+ /uL (Negative) Urine RBC 6 /hpf (0 - 3) Urine WBC Clumps Present /hpf (None Seen) Urine Microscopic WBC 641 /HPF (0-3) H Urine Squamous Epithelial Cells None seen /hpf (<5) Urine Bacteria None seen /hpf (None Seen) Urine Mucus Few (None Seen) Urine Glucose Normal mg/dL (Normal) Microbiology Microbiology Date/Time Source Procedure Growth Status 10/23/24 18:35 Voided Urine Urine Culture - Preliminary Resulted 10/22/24 12:12 Blood Blood Culture - Preliminary NO GROWTH AFTER 48 HOURS OF INCUBATION. Resulted Labs and/or images reviewed: Labs reviewed by me, Image(s) reviewed by me Assessment/Plan Assessment/Plan Septic shock secondary to urinary tract infection: Blood cultures negative, urine cultures neg Acute Urinary tract infection: Rocephin NSTEMI, likely type 2 secondary to above Rule out structural heart disease Severe coronary artery disease status post quintuple bypass surgery (on Plavix) , cardiology consult by Dr. Guillaume appreciated Hypertension Acute urinary retention secondary to enlarged prostate: CT abdomen pelvis without contrast shows bilateral renal cysts, urology consult placed Chronically displaced left hip joint Dyslipidemia Chronic kidney disease BPH History of TIA Time spent 50 minutes Advanced care planning time 20 minutes Patient is full code Spoke to pts Thea [phone] and grand son Lopez [phone] on the phone from bedside and the [facility] and IV antibiotics Plan discussed with: Patient My Orders Orders - NICOLE CRAVEN MD Procedure Category Date Status Time * Urology Consult CONS 10/24/24 Transmitted 14:31 Pt Request For Service PT 10/24/24 Logged 14:59 Date of Service: Oct 25, 2024 Billing Provider: NICOLE CRAVEN MD Common Visit Codes: [id number] INP/OBS CARE(HIGH) NICOLE CRAVEN MD Oct 25, 2024 10:55
--- NOTE | 2024-10-25 11:04 | DVHDS2 ---
Discharge Summary Date of Admission Oct 21, 2024 at 11:25 Date of Discharge: Oct 25, 2024 Admitting Diagnosis Altered mental status and confusion Wounds: None Labs/Diagnostic Data: Laboratory Results Test 10/22/24 04:46 10/21/24 10:13 10/21/24 08:14 10/21/24 07:56 White Blood Count 10.6 10^3/uL (4.4-10.8) Red Blood Count 3.59 10^6/uL (4.5-5.90) Hemoglobin 12.5 g/dL (13.5-17.5) Hematocrit 36.3 % (41.0-53.0) Mean Corpuscular Volume 100.9 fL (80.0-100.0) Mean Corpuscular Hemoglobin 34.7 pg (28.0-32.0) Mean Corpuscular Hemoglobin Concent 34.3 g/dL (32.0-36.0) Red Cell Distribution Width 13.8 % (11.8-14.3) Platelet Count 105 10^3/uL (140-450) Mean Platelet Volume 8.3 fL (6.9-10.8) Neutrophils (%) (Auto) 87.6 % (37.0-80.0) Lymphocytes (%) (Auto) 5.6 % (10.0-50.0) Monocytes (%) (Auto) 6.6 % (0.0-12.0) Eosinophils (%) (Auto) 0.0 % (0.0-7.0) Basophils (%) (Auto) 0.2 % (0.0-2.0) Neutrophils # (Auto) 9.3 10 ^3/uL (1.6-8.6) Lymphocytes # (Auto) 0.6 10 ^3/uL (0.4-5.4) Monocytes # (Auto) 0.7 10 ^3/uL (0-1.3) Eosinophils # (Auto) 0 10 ^3/uL (0-0.8) Basophils # (Auto) 0 10 ^3/uL (0-0.2) Nucleated Red Blood Cells 0.0 % Sodium Level 139 mmol/L (136-145) Potassium Level 4.4 mmol/L (3.5-5.1) Chloride Level 108 mmol/L (98-107) Carbon Dioxide Level 21 mmol/L (20-31) Anion Gap 10 (5-15) Blood Urea Nitrogen 36 mg/dL (9-23) Creatinine 1.58 mg/dL (0.700-1.30) Glomerular Filtration Rate Calc 43 mL/min (>90) BUN/Creatinine Ratio 22.8 (10.0-20.0) Serum Glucose 125 mg/dL (74-106) Calcium Level 9.3 mg/dL (8.7-10.4) Total Bilirubin 1.1 mg/dL (0.2-1.0) Aspartate Amino Transferase (AST) 36 U/L (13-40) Alanine Aminotransferase (ALT) 30 U/L (7-40) Alkaline Phosphatase 89 U/L (46-116) Total Protein 7.0 g/dL (5.7-8.2) Albumin 4.0 g/dL (3.2-4.8) Troponin I High Sensitivity 66 ng/L (</=54) Hemoglobin A1c 5.4 % A1C (<5.7) Triglycerides Level 107 mg/dL (< 150) Cholesterol Level 111 mg/dL (< 200) LDL Cholesterol 54 mg/dL (< 100) HDL Cholesterol 41 mg/dL (40-59) Thyroid Stimulating Hormone (TSH) 0.64 uIU/mL (0.55-4.78) Urine Color Light-yellow (Yellow) Urine Clarity Turbid (Clear) Urine pH 6.0 (5.0-9.0) Urine Specific [place] 1.016 (1.001-1.035) Urine Protein 2+ (Negative) Urine Ketones Negative (Negative) Urine Blood 2+ /uL (Negative) Urine Nitrite Negative (Negative) Urine Bilirubin Negative (Negative) Urine Urobilinogen Normal mg/dL (Negative) Urine Leukocyte Esterase 3+ /uL (Negative) Urine RBC 6 /hpf (0 - 3) Urine WBC Clumps Present /hpf (None Seen) Urine Microscopic WBC 641 /HPF (0-3) Urine Squamous Epithelial Cells None seen /hpf (<5) Urine Bacteria None seen /hpf (None Seen) Urine Mucus Few (None Seen) Urine Glucose Normal mg/dL (Normal) Urine Opiates Screen Neg (NEGATIVE) Urine Fentanyl Screen Neg (NEGATIVE) Urine Barbiturates Screen Neg (NEGATIVE) Urine Phencyclidine Screen Neg (NEGATIVE) Urine Amphetamines Screen Neg (NEGATIVE) Urine Benzodiazepines Screen Neg (NEGATIVE) Urine Cocaine Screen Neg (NEGATIVE) Urine Cannabinoids Screen Neg (NEGATIVE) Other Laboratory Tests 10/22/24 04:46 Brief Hx & Hospital Course: Year-old male with multiple medical problems including hypertension history of CABG on Plavix hypercholesterolemia hypotension chronic kidney disease chronically displaced left hip admitted for generalized weakness and altered mental status found to be in septic shock secondary to urinary tract infection started on Rocephin blood cultures negative urine cultures negative patient had elevated troponin non ST-elevation LA type [address] Guillaume no further cardiac workup patient had acute urinary retention secondary to enlarged prostate Mckeon was inserted urology consulted CT abdomen pelvis without contrast showed bilateral renal cysts up to 11 cm urology advised follow up ultrasound in six months. Patient being discharged to care home facility for IV antibiotics for two weeks and for rehab as he is unable to ambulate and physical therapy recommended care home facility placement. Discussed the plan with the patient's Thea and grandroman Marroquin who agreed Consults/Reason for consult Urology Dr. Rodriguez Cardiology Dr. Anand Guillaume Operations or Procedures CT abdomen pelvis without contrast Condition at Discharge: Fair Final Diagnosis/Problems List Septic shock secondary to urinary tract infection: Blood cultures negative, urine cultures neg Acute Urinary tract infection: Rocephin NSTEMI, likely type 2 secondary to above Rule out structural heart disease Severe coronary artery disease status post quintuple bypass surgery (on Plavix) , cardiology consult by Dr. Guillaume appreciated Hypertension Acute urinary retention secondary to enlarged prostate: CT abdomen pelvis without contrast shows bilateral renal cysts, urology consult placed Chronically displaced left hip joint Dyslipidemia Chronic kidney disease BPH History of TIA Discharge Disposition: Assisted Facility Discharge Instruct/Medications Diet: Cardiac 2g Na,low cholest Activity: Light activity Follow Up/Referral: Follow up with the long term doctor Medications: see list Discharge Statement: "Patient was advised to return to the ER or call 911 if any headaches, dizziness, shortness of breath, chest pain, abdominal pain, bleeding, fevers, or worsening of medical condition. Patient was counseled about treatment plan, medications, possible side effects, patientverbalized understanding. All questions were answered to the best of my ability. This discharge took greater then 30 minutes in planning, reviewing documentation, counseling the patient, and discussing with other team members." ASSESSMENT ASSESSMENT Hospital Course Improved Assessment Septic shock secondary to urinary tract infection: Blood cultures negative, urine cultures neg Acute Urinary tract infection: Rocephin NSTEMI, likely type 2 secondary to above Rule out structural heart disease Severe coronary artery disease status post quintuple bypass surgery (on Plavix) , cardiology consult by Dr. Guillaume appreciated Hypertension Acute urinary retention secondary to enlarged prostate: CT abdomen pelvis without contrast shows bilateral renal cysts, urology consult placed Chronically displaced left hip joint Dyslipidemia Chronic kidney disease BPH History of TIA Date of Service: Oct 25, 2024 Billing Provider: NICOLE CRAVEN MD Common Visit Codes: [id number]-UVR/OBS DISCH DAY >30min NICOLE CRAVEN MD Oct 25, 2024 11:04
[2024-10-25 12:32] VITALS: BP 141/67; PULSE 64; RESP 18; TEMP 97.9; O2SAT 97
[2024-10-25 12:39] LABS: COVID19 ANTIGEN SOFIA FIA NEGATIVE (NEGATIVE)
[2024-10-25 16:49] VITALS: BP 141/69; PULSE 65; RESP 18; TEMP 98; O2SAT 98
--- NOTE | 2024-10-25 23:33 | DVHPN2 ---
Progress Note - Dictate Date Seen: Oct 25, 2024 Medical Necessity Reason Pt with a Central, PICC or Fol: No Subjective Patient was seen and evaluated in follow up. Patient has no new complaints at this time. Patient denies any cardiac symptoms. Patient is cardiac stable for discharge. Telemetry reviewed. vital signs Vital Sign Date Time Temp Pulse Resp B/P (MAP) Pulse Ox O2 Delivery O2 Flow Rate FiO2 10/25/24 16:49 98.0 65 18 141/69 (93) 98 98.0 10/25/24 08:00 Room Air* 0 21 Total Intake and Output 10/24/24 10/24/24 10/25/24 15:00 23:00 07:00 Intake Total 50 ml 500 ml 900 ml Output Total 1300 ml 700 ml Balance 50 ml -800 ml 200 ml objective GENERAL: Alert and oriented x 3. No acute distress. EYES: PERRL, EOMI. Anicteric. HENT: Moist mucous membranes. LUNGS: Clear to auscultation bilaterally. CARDIOVASCULAR: Regular rate and rhythm. ABDOMEN: Soft, nontender and nondistended. EXTREMITIES: No edema. NEUROLOGIC: No focal neurological deficits. SKIN: Warm, dry. laboratory and microbiology Laboratory Tests 10/22/24 04:46 Test 10/22/24 04:46 Range/Units Serum Glucose 125 H 74-106 mg/dL Problem List Urinary tract infection. NSTEMI, likely type 2 secondary to above. Rule out structural heart disease. Severe coronary artery disease status post quintuple bypass surgery (on Plavix) . Hypertension. Dyslipidemia. Chronic kidney disease. BPH. History of TIA. Assessment/Plan Continued all current supportive medical care. Aspirin, Lipitor, Plavix, Metoprolol. IV antibiotics as ordered. Lisinopril. Morphine for pain management. Nitro SL. Additional plan as per the hospital course. Plan discussed with: Patient MICHAEL FIELD MD Oct 25, 2024 23:33
== END 2024-10-25 20:32 | DRG 871 ==
LOC: EDBD 07:23 → ER 07:23 → OVERFLOW 11:25 → TELE-WESTW 15:42
PROVIDERS: ADMIT Family Medicine; ATTEND Family Medicine
DX: A41.9 Sepsis, unspecified organism (principal); I21.A1 Myocardial infarction type 2; R65.21 Severe sepsis with septic shock; N17.9 Acute kidney failure, unspecified; N39.0 Urinary tract infection, site not specified; D69.6 Thrombocytopenia, unspecified; I12.9 Hypertensive chronic kidney disease with stage 1 through stage 4 chronic kidney disease, or unspecified chronic kidney disease; N18.9 Chronic kidney disease, unspecified; I16.0 Hypertensive urgency; I25.10 Atherosclerotic heart disease of native coronary artery without angina pectoris; S51.011A Laceration without foreign body of right elbow, initial encounter; W18.11XA Fall from or off toilet without subsequent striking against object, initial encounter; R33.8 Other retention of urine; Z20.822 Contact with and (suspected) exposure to COVID-19; N40.1 Benign prostatic hyperplasia with lower urinary tract symptoms; N28.1 Cyst of kidney, acquired; E78.00 Pure hypercholesterolemia, unspecified; Z86.73 Personal history of transient ischemic attack (TIA), and cerebral infarction without residual deficits; Z95.1 Presence of aortocoronary bypass graft; Y93.89 Activity, other specified; Y92.89 Other specified places as the place of occurrence of the external cause; Y99.8 Other external cause status; Z79.899 Other long term (current) drug therapy; Z79.02 Long term (current) use of antithrombotics/antiplatelets; Z23 Encounter for immunization; Z28.21 Immunization not carried out because of patient refusal
CPT/HCPCS: 36415; 73070; 74176; 80048; 80053; 80061; 80307; 81001; 83036; 84443; 84484; 85025; 87040; 87086; 87426; 93005; 93306; 96361; 96365; 97163; G0378

== ENCOUNTER 2024-11-18 15:49 | Inpatient (IN) | payer MEDICARE, BC ==
[~2024-11-18] VITALS: Ht 182.9 cm; Wt 82.5 kg
[~2024-11-18 15:49] MED LIST: CLOP75TA70 PO; FERR325T20 PO; ISOS1TAB28 PO; LISI10TA34 PO; MET25T PO; ROSU5TAB24 PO; TAMS0.4C39 PO
--- NOTE | 2024-11-18 16:05 | ED.PDOC ---
GI ASSESSMENT HPI Comments 84 year old male presents to the ED with a PMHx of HTN, TIA, and BPH associated to the c/c of ABD pain and abdominal distention developing for several days.. Pt is noted to have been transferred from [facility], and has a distended Abdomen and is in discomfort with no alleviating factors at this point in time. Pt is also notes to have been transferred without his catheter in place. According to EMS, patient has a BPH concerned that results in some bladder outlet obstruction. Pt Denies fever, chills, coughing, N/V/D, SOB, Chest pain, or other associated symptoms, modifiers, or recent injuries or sick contact that this time. Chief Complaint: Abdominal Pain Time Seen by MD: 16:01 Primary Care Provider: Toby Dickens Notes: Nurses Notes, Medications, Allergies Allergies: Coded Allergies: NO KNOWN ALLERGIES (Unverified , 10/21/24) Home Meds Reported Medications Clopidogrel Bisulfate (CLOPIDOGREL) 75 Mg Tab, 1 TAB PO DAILY 10/21/24 Isosorbide Mononitrate (Isosorbide Mononitrate Er) 30 Mg Tab, 1 TAB PO DAILY 10/21/24 Ferrous Sulfate (Ferosul) 325 Mg Tab, 1 TAB PO DAILY 10/21/24 Rosuvastatin Calcium (Rosuvastatin Calcium) 5 Mg Tab, 1 TAB PO DAILY 10/21/24 Metoprolol Tartrate (Lopressor) 25 Mg Tb, 1 TAB PO 10/21/24 Lisinopril (Lisinopril) 10 Mg Tab, 1 TAB PO DAILY 10/21/24 Tamsulosin Hcl (Tamsulosin Hcl) 0.4 Mg Cap, 1 CAP PO 10/21/24 Information Source: Patient Mode of Arrival: Ambulatory Timing: Days Duration: Since onset, Days Prehospital treatment: None Quality: Aching Vomitus: None Stool: Normal Severity: Moderate Recent: Other (Urine retention due to BPH) Recent Hx of: None Pain Location: Diffuse, Epigastric, Periumbilical Modifying Factors: Nothing Associated sign and symptoms: Abdominal Pain Past Medical History PAST MEDICAL HISTORY: HTN, TIA Past Medical History (Other): BPH Surgical History: Denies all surgeries Family History Family History: Reviewed,noncontributory to illness Social History Smoker: Non-Smoker Alcohol: Denies ETOH Use Drugs: Denies Drug Use Lives In: Home Constitutional: reports: weakness; denies: chills, diaphoresis, fatigue, fever, malaise, sweats, others EENTM: denies: blurred vision, double vision, ear bleeding, ear discharge, ear drainage, ear pain, ear ringing, eye pain, eye redness, hearing loss, mouth pain, mouth swelling, nasal discharge, nose bleeding, nose congestion, nose pain, photophobia, tearing, throat pain, throat swelling, voice changes, others Respiratory: denies: cough, hemoptysis, orthopnea, SOB at rest, shortness of breath, SOB with excertion, stridor, wheezing, others Cardiovascular: denies: chest pain, dizzy spells, diaphoresis, Dyspnea on exertion, edema, irregular heart beat, left arm pain, lightheadedness, palpitations, PND, syncope, others Gastrointestinal: reports: abdominal pain, others (Abdominal distention); denies: abdomen distended, blood streaked bowels, constipated, diarrhea, dysphagia, difficulty swallowing, hematemesis, melena, nausea, poor appetite, poor fluid intake, rectal bleeding, rectal pain, vomiting Genitourinary: denies: burning, dysuria, flank pain, frequency, hematuria, incontinence, penile discharge, penile sore, pain, testicle pain, testicle swelling, urgency, others Neurological: denies: dizziness, fainting, headache, left sided numbness, left sided weakness, numbness, paresthesia, pre-existing deficit, right sided numbness, right sided weakness, seizure, speech problems, tingling, tremors, weakness, others Musculoskeletal: denies: back pain, gout, joint pain, joint swelling, muscle pain, muscle stiffness, neck pain, others Integumetry: denies: bruises, change in color, change in hair/nails, dryness, laceration, lesions, lumps, rash, wounds, others Allergic/Immunocompromised: denies: Difficulty Healing, Frequent Infections, Hives, Itching, others Hematologic/Lymphatic: denies: anemia, blood clots, easy bleeding, easy bruising, swollen glands, others Endocrine: denies: excessive hunger, excessive sweating, excessive thirst, excessive urination, flushing, intolerance to cold, intolerance to heat, unexplained weight gain, unexplained weight loss, others Psychiatric: denies: anxiety, bipolar disorder, depression, hopeless, panic disorder, schizophrenia, sleepless, suicidal, others All Other Systems: Reviewed and Negative Physical Exam General Appearance: Moderate Distress (Moderate distress due to abdominal distention and pain concerns.), Normal HEENT: Normal ENT Inspection, Pharynx Normal, TMs Normal Neck: Full Range of Motion, Non-Tender, Normal, Normal Inspection Respiratory: Chest Non-Tender, Lungs Clear, No Accessory Muscle Use, No Respiratory Distress, Normal Breath Sounds Cardiovascular: No Edema, No JVD, No Murmur, No Gallop, Normal Peripheral Pulses, Regular Rate/Rhythm Breast Exam: Deferred Gastrointestinal: Other (Patient displays relatively significant abdominal distention that may be ascites related. No pulsatile masses.) Genitalia: Deferred Pelvic: Deferred Rectal: Deferred Extremities: No calf tenderness, Normal capillary refill, No pedal edema Musculoskeletal : Apperance: Normal Neurologic: Alert Cerebellar Function: NOT DONE Reflexes: NOT DONE Skin: Dry, Normal Color, Warm Lymphatic: No Adenopathy Was a procedure done? Was a procedure done?: No GI differential Dx Differential Diagnosis: Bowel Obstruction, Cholangitis, Cholecystitis, Constipation, Diverticular disease, Gastritis/PUD, Gastroenteritis, Pancreatitis, Other (Liver cirrhosis, ascites) X-Ray, Labs, Meds, VS Vital Signs Date Time Temp Pulse Resp B/P (MAP) Pulse Ox O2 Delivery O2 Flow Rate FiO2 11/18/24 20:00 98.1 82 16 110/60 (77) 100 98.1 11/18/24 18:00 87 16 107/61 (76) 100 11/18/24 16:56 94 Nasal Cannula* 3 32 11/18/24 16:34 97 11/18/24 16:32 99 16 91 Room Air* 0 21 11/18/24 16:27 98.3 99 16 113/56 (75) 90 98.3 11/18/24 16:08 97.4 76 14 118/64 (82) 96 97.4 Lab Test 11/18/24 19:11 11/18/24 17:24 11/18/24 16:53 11/18/24 16:25 Range/Units Troponin I High Sensitivity 92 *H 86 *H 97 *H </=54 ng/L Urine Color Colorless Yellow Urine Clarity Turbid H Clear Urine pH 5.0 5.0-9.0 Urine Specific [place] 1.009 1.001-1.035 Urine Protein 1+ H Negative Urine Ketones Negative Negative Urine Blood 3+ H Negative /uL Urine Nitrite Negative Negative Urine Bilirubin Negative Negative Urine Urobilinogen Normal Negative mg/dL Urine Leukocyte Esterase 3+ Negative /uL Urine RBC 158 0 - 3 /hpf Urine Microscopic WBC 70 H 0-3 /HPF Urine Squamous Epithelial Cells Few <5 /hpf Urine Bacteria Few H None Seen /hpf Urine Glucose Normal Normal mg/dL White Blood Count 8.4 4.4-10.8 10^3/uL Red Blood Count 3.06 L 4.5-5.90 10^6/uL Hemoglobin 10.4 L 13.5-17.5 g/dL Hematocrit 30.4 L 41.0-53.0 % Mean Corpuscular Volume 99.3 80.0-100.0 fL Mean Corpuscular Hemoglobin 34.2 H 28.0-32.0 pg Mean Corpuscular Hemoglobin Concent 34.4 32.0-36.0 g/dL Red Cell Distribution Width 13.6 11.8-14.3 % Platelet Count 154 140-450 10^3/uL Mean Platelet Volume 8.0 6.9-10.8 fL Neutrophils (%) (Auto) 82.6 H 37.0-80.0 % Lymphocytes (%) (Auto) 6.1 L 10.0-50.0 % Monocytes (%) (Auto) 10.6 0.0-12.0 % Eosinophils (%) (Auto) 0.5 0.0-7.0 % Basophils (%) (Auto) 0.2 0.0-2.0 % Neutrophils # (Auto) 7.0 1.6-8.6 10 ^3/uL Lymphocytes # (Auto) 0.5 0.4-5.4 10 ^3/uL Monocytes # (Auto) 0.9 0-1.3 10 ^3/uL Eosinophils # (Auto) 0 0-0.8 10 ^3/uL Basophils # (Auto) 0 0-0.2 10 ^3/uL Nucleated Red Blood Cells 0.0 % Sodium Level 127 L 136-145 mmol/L Potassium Level 3.9 3.5-5.1 mmol/L Chloride Level 96 L 98-107 mmol/L Carbon Dioxide Level 21 20-31 mmol/L Anion Gap 10 5-15 Blood Urea Nitrogen 62 H 9-23 mg/dL Creatinine 2.71 H 0.700-1.30 mg/dL Glomerular Filtration Rate Calc 23 >90 mL/min BUN/Creatinine Ratio 22.9 H 10.0-20.0 Serum Glucose 115 H 74-106 mg/dL Lactic Acid Level 1.3 0.4-2.0 mmol/L Calcium Level 8.4 L 8.7-10.4 mg/dL Total Bilirubin 0.5 0.2-1.0 mg/dL Aspartate Amino Transferase (AST) 25 13-40 U/L Alanine Aminotransferase (ALT) 20 7-40 U/L Alkaline Phosphatase 80 46-116 U/L Total Protein 6.4 5.7-8.2 g/dL Albumin 3.6 3.2-4.8 g/dL Lipase 65 H 12-53 U/L Current Medications Medications (Trade) Dose Ordered Sig/Rigo Route Start Time Stop Time Status Last Admin Dimethicone (Mylicon Tab) 80 mg ONCE ONCE PO 11/18/24 17:15 11/18/24 17:16 DC 11/18/24 17:33 PATIENT: MADYSON KHAN ACCT: [id number] UNIT: [id number] : 1940 LOC: ER ROOM / BED: / AGE / SEX: 84 / M ADM STATUS: REG ER SERVICE [id number] ORDERING PHYSICIAN: KIMBERLY SHIRLEY PAC PROCEDURE(s): ABPL - CT AB PEL WO CON-NO ORAL OR IV REASON: Abdominal distention ORDER NUMBER(s): [id number], ACCESSION NUMBER(s): [id number] Exam: CT CT AB PEL WO CON-NO ORAL OR IV History: Abdominal distention Comparison Study: CT CT AB PEL WO CON-NO ORAL OR IV on DOS: 10/23/24 TECHNIQUE: Multidetector CT of the abdomen was performed from lung bases to pubic symphysis. Imaging was performed without IV contrast. Axial, coronal and sagittal multiplanar reformats were obtained from the axial data set by the technologist. Radiation Dose Information: CT Dose: CTDI volume is 9.13 mGy. Dose-length product is 569.9 mGy*cm FINDINGS: Evaluation of solid organs is limited due to lack of intravenous contrast use. 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 No focal lesions. Gallbladder and Biliary Tree: Unremarkable Spleen: Unremarkable Pancreas: The pancreas is grossly normal in appearance. Adrenal Glands: Unremarkable Kidneys: Stable large bilateral renal cysts. Largest on the right measures 12.1 x 10.6 cm. Largest on the left measures 5 cm. Bladder: Grossly unremarkable for degree of distention. Bowel: The stomach is grossly normal in appearance. Small bowel and colon are normal in caliber and distribution. Gaseous distention of the colon. No abnormal dilatation of the small bowel The appendix is not visualized; however, no secondary findings of acute appendicitis identified. Ascites: Absent Lymphadenopathy: No mesenteric, retroperitoneal or periportal lymphadenopathy. Abdominal Wall and Mesentery: Unremarkable. Vasculature: The visualized abdominal aorta is normal in size and caliber. Evaluation of abdominal and pelvic vessels is limited due to lack of intravenous contrast. Pelvic Organs: Unremarkable Musculoskeletal: No aggressive focal bony lesions, acute fractures or dislocation. Chronic left femoral neck fracture and dislocation. Soft tissues: Unremarkable IMPRESSION: 1. Multiple bilateral renal cysts. 2. Gaseous distention of the colon 5-6 cm. 3. 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 Radiation optimization: All CT scans at this facility use at least one of these dose optimization techniques: automated exposure control mA and/or kV adjustment per patient size (includes targeted exams where dose is matched to clinical indication) or iterative reconstruction. HS:Y X-Ray, Labs, Meds, VS Comment All studies performed the ED were evaluated by me personally. Laboratories revealed an anemic state, hyponatremia, significant acute on chronic renal concerns, elevated lipase, elevated troponin and a substantial urinary tract infection. CT of the abdomen and pelvis revealed multiple bilateral renal cysts as well as as gaseous distention of the colon and chronic dislocation of the left proximal femur. EKG revealed a rate controlled AFib with a rate of 97. L VH with secondary repolarization abnormality and age indeterminate inferior lateral infarct. QT interval 356. Patient will be admitted for multiple comorbidities and will require cardiac and Nephrology consult at the least. Time of 1ST Reevaluation: 21:38 Reevaluation 1ST: Unchanged Consultation: PCP Patient Education/Counseling: Diagnosis, Treatment Family Education/Counseling: Diagnosis, Treatment, No Family Present Sepsis Sepsis Reasesment Focused Exam Orders: Laboratory Tests 11/18/24 16:25: Lactic Acid Level 1.3 Departure 1 Departure Time of Disposition: 21:39 Impression: Primary Impression: Urinary tract infection Additional Impressions: [id number] kidney injury Hyponatremia Anemia Elevated troponin I level Elevated lipase Disposition: ADMITTED INPATIENT Condition: Fair Discharged With: Self Critical Care Note Critical Care Time?: No Stability Stability form required: No Heart Score Heart Score: Heart Score Response (Comments) Value History Slightly Suspicious 0 EKG Repolarization Disturb 1 Age >65 2 Risk Factors 1 or 2 risk factors 1 Troponin >3 x's Normal limit 2 Total 6 I personally scribed for KIMBERLY SHIRLEY PAC ([email or web address]) on 11/18/24 at 16:05. Electronically submitted by Chris Lujan ([email or web address]). I personally scribed for KIMBERLY SHIRLEY PAC ([email or web address]) on 11/18/24 at 17:12. Electronically submitted by Chris Lujan ([email or web address]). KIMBERLY SHIRLEY PAC November 18, 2024 16:05
[2024-11-18 16:32] VITALS: PULSE 99; RESP 16; O2SAT 91
--- NOTE | 2024-11-18 16:58 | DVH ---
Exam: CT CT AB PEL WO CON-NO ORAL OR IV History: Abdominal distention Comparison Study: CT CT AB PEL WO CON-NO ORAL OR IV on DOS: 10/23/24 TECHNIQUE: Multidetector CT of the abdomen was performed from lung bases to pubic symphysis. Imaging was performed without IV contrast. Axial, coronal and sagittal multiplanar reformats were obtained fr om the axial data set by the technologist. Radiation Dose Information: CT Dose: CTDI volume is 9.13 mGy. Dose-length product is 569.9 mGy*cm FINDINGS: Evaluation of solid organs is limited due to lack of intravenous contrast use. 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 No focal lesions. Gallbladder and Biliary Tree: Unremarkable Spleen: Unremarkable Pancreas: The pancreas is grossly normal in appearance. Adrenal Glands: Unremarkable Kidneys: Stable large bilateral renal cysts. Largest on the right measures 12.1 x 10.6 cm. Largest o n the left measures 5 cm. Bladder: Grossly unremarkable for degree of distention. Bowel: The stomach is grossly normal in appearance. Small bowel and colon are normal in caliber and d istribution. Gaseous distention of the colon. No abnormal dilatation of the small bowel The appendix is not visualized; however, no secondary findings of acute appendicitis identified. Ascites: Absent Lymphadenopathy: No mesenteric, retroperitoneal or periportal lymphadenopathy. Abdominal Wall and Mesentery: Unremarkable. Vasculature: The visualized abdominal aorta is normal in size and caliber. Evaluation of abdominal a nd pelvic vessels is limited due to lack of intravenous contrast. Pelvic Organs: Unremarkable Musculoskeletal: No aggressive focal bony lesions, acute fractures or dislocation. Chronic left femor al neck fracture and dislocation. Soft tissues: Unremarkable IMPRESSION: 1. Multiple bilateral renal cysts. 2. Gaseous distention of the colon 5-6 cm. 3. 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 Radiation optimization: All CT scans at this facility use at least one of these dose optimization te chniques: automated exposure control mA and/or kV adjustment per patient size (includes targeted exa ms where dose is matched to clinical indication) or iterative reconstruction. HS:Y
[2024-11-18 16:59] LABS: Basophils # (auto) 0 10 ^3/uL (0-0.2); Basophils % (auto) 0.2 % (0.0-2.0); Hemoglobin 10.4 g/dL (13.5-17.5); Lymphocytes # (auto) 0.5 10 ^3/uL (0.4-5.4); Monocytes # (auto) 0.9 10 ^3/uL (0-1.3); Neutrophils % (auto) 82.6 % (37.0-80.0)
[2024-11-18 17:01] LABS: Eosinophils # (auto) 0 10 ^3/uL (0-0.8); Eosinophils % (auto) 0.5 % (0.0-7.0); Hematocrit 30.4 % (41.0-53.0); Lymphocytes % (auto) 6.1 % (10.0-50.0); Mean Corpuscular Hemoglobin 34.2 pg (28.0-32.0); Mean Corpuscular Hgb Conc. 34.4 g/dL (32.0-36.0); Mean Corpuscular Volume 99.3 fL (80.0-100.0); Monocytes % (auto) 10.6 % (0.0-12.0); Platelet Count (auto) 154 10^3/uL (140-450); Red Blood Cells 3.06 10^6/uL (4.5-5.90); Red Cell Distribution Width 13.6 % (11.8-14.3); White Blood Cell 8.4 10^3/uL (4.4-10.8)
[2024-11-18 17:07] LABS: Alanine Aminotransferase 20 U/L (7-40); Albumin 3.6 g/dL (3.2-4.8); Alkaline Phosphatase 80 U/L (46-116); Anion Gap 10 (5-15); Aspartate Aminotransferase 25 U/L (13-40); BUN/Creatinine Ratio 22.9 (10.0-20.0); Bilirubin, Total 0.5 mg/dL (0.2-1.0); Carbon Dioxide 21 mmol/L (20-31); Potassium 3.9 mmol/L (3.5-5.1); Total Protein 6.4 g/dL (5.7-8.2)
[2024-11-18 17:09] LABS: Blood Urea Nitrogen 62 mg/dL (9-23); Calcium 8.4 mg/dL (8.7-10.4); Chloride 96 mmol/L (98-107); Glucose 115 mg/dL (74-106); Lipase 65 U/L (12-53); Sodium 127 mmol/L (136-145)
[2024-11-18 17:13] LABS: Urine Bacteria FEW /hpf (None Seen); Urine Blood 3+ /uL (Negative); Urine Clarity Turbid (Clear); Urine Color Colorless (Yellow); Urine Protein, UAD 1+ (Negative); Urine Specific Gravity 1.009 (1.001-1.035); Urine Squamous Epithelial Cell FEW /hpf (<5); Urine Urobilinogen Normal (Negative); Urine WBC 70 /HPF (0-3)
[2024-11-18] MEDS: SIMETHICONE 80 MG CHEWABLE TABLET PO ONE (17:33)
--- NOTE | 2024-11-18 19:04 | ECG ---
[facility] Test Date: 2024-11-18 Test Time: 16:34:38 Pat Name: MADYSON KHAN Department: ED Room: 0278T Gender: M Skull Chopper: siri : 1940 Requested By: KIMBERLY SHIRLEY Order Number: [id number] Reading MD: Cj Dhaliwal Measurements Intervals [place] Rate: 97 P: 0 OK: 0 QRS: -26 QRSD: 100 T: 61 QT: 356 QTc: 452 Interpretive Statements Atrial fibrillation LVH with secondary repolarization abnormality Inferolateral infarct, age indeterminate Electronically Signed On 11-21-2024 12:03:24 PDT by Cj Dhaliwal Please click the below link to view image of tracing.
[2024-11-18] MEDS ORDERED: HYDROcodone-ACET 5/325MG TAB PO PRN (21:15)
[2024-11-18] MEDS ORDERED: ACETAMINOPHEN 325 MG TAB PO PRN (21:15)
[2024-11-18] MEDS ORDERED: ONDANSETRON HCL 4 MG/2 ML VIAL IV PRN (21:15)
[2024-11-18] MEDS ORDERED: DOCUSATE SOD 100 MG CAP PO PRN (21:15)
[2024-11-18] MEDS ORDERED: hydrALAZINE HCL 20 MG/ML VL IV PRN (21:15)
[2024-11-18] MEDS: SODIUM CHLORIDE 0.9% 1,000 ML IV SCH (21:38)
[2024-11-18] MEDS: cefTRIAXone 1GM/50ML D5W 50 ML IV ONE (21:38)
[2024-11-18] MEDS: ASPirin 81 mg TAB PO ONE (21:38)
--- NOTE | 2024-11-18 21:59 | DVHHP2 ---
History of Present Illness Reason for Visit: Hyponatremia History of Present Illness The patient is a 84-year-old male with past medical history of BPH, HLD, TIA, and hypertension who presented to [facility] ED with complaint of abdominal pain. Patient reports symptoms progressively get worse with abdominal distention, weakness, getting worse that prompted this visit. Patient was seen and evaluated in the ED, laboratory data shows WBC 8.4, hemoglobin 10.4, hematocrit 30.4, platelets 154, sodium 127, potassium 3.9, BUN 62, creatinine 2.71, glucose 115, troponin 92, calcium 8.4, lipase 65, blood pressure 110/60, heart rate 82, temperature 98.1 F, O2 saturation 94% on oxygen. Urinalysis posi tive for urinary tract infection. 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 Patient was started on IV antibiotic regimen Rocephin, please see medication orders section in the computer. On my assessment, patient denied chest pain, no headache, no dizziness, currently on oxygen, no nausea, no vomiting, no fever, no chills. Patient was admitted further evaluation and medical management. Past Medical History HTN, TIA, BPH, HLD Past Surgical History Denies all surgeries Family History Reviewed, noncontributory to the management of this case. Past Social History The patient lives at home, denies smoking, alcohol or illicit drugs abuse. Review of Systems Constitutional: Yes: Weakness; No: Fever, Chills, Sweats, Malaise, Other Eyes: No: Pain, Vision change, Conjunctivae inflammation, Eyelid inflammation, Other, Redness ENT: No: Ear pain, Ear discharge, Nose pain, Nose discharge, Nose congestion, Mouth pain, Mouth swelling, Throat pain, Throat swelling, Other Respiratory: Shortness of breath; No: Cough, Dry, SOB with excertion, Wheezing, Hemoptysis, Pleuritic Pain, Sputum, Wheezing, Other Cardiovascular: No: Chest Pain, Palpitations, Orthopnea, Paroxysmal Noc. Dyspnea, Edema, Lt Headedness, Other Gastrointestinal: Abdominal Pain, Other (Abdominal distention); No: Nausea, Vomiting, Diarrhea, Constipation, Melena, Hematochezia Genitourinary: No Dysuria, No Frequency, No Incontinence, No Hematuria, No Retention, No Other Musculoskeletal: No: other, neck pain, shoulder pain, arm pain, back pain, hand pain, leg pain, foot pain Skin: No: Rash, Lesions, Jaundice, Bruising, Other Neurological: No: Weakness, Numbness, Incoordination, Change in speech, Confusion, Seizures, Other Allergies: Coded Allergies: NO KNOWN ALLERGIES (Unverified , 10/21/24) Medications Current Medications Medications Dose Ordered Sig/Rigo Route Start Time Stop Time Status Last Admin Dose Admin Tamsulosin HCl 0.4 mg QPM PO 11/19/24 18:00 Hydralazine HCl 10 mg Q6HP PRN IV 11/18/24 21:15 Ceftriaxone Sodium 50 ml @ 100 mls/hr DAILY@09 IV 11/19/24 09:00 Aspirin 81 mg DAILY PO 11/19/24 10:00 Famotidine 20 mg DAILY IV 11/19/24 10:00 Sodium Chloride 1,000 ml @ 60 mls/hr [id number] IV 11/18/24 21:15 11/18/24 21:38 60 MLS/HR Acetaminophen/ Hydrocodone Bitart 1 tab Q4HP PRN PO 11/18/24 21:15 Ondansetron HCl 4 mg Q4HP PRN IV 11/18/24 21:15 Docusate Sodium 100 mg BIDPRN PRN PO 11/18/24 21:15 Acetaminophen 650 mg Q6HP PRN PO 11/18/24 21:15 Exam Vital Signs Vital Signs Date Time Temp Pulse Resp B/P (MAP) Pulse Ox O2 Delivery O2 Flow Rate FiO2 11/18/24 20:00 98.1 82 16 110/60 (77) 100 98.1 11/18/24 16:56 Nasal Cannula* 3 32 General Appearance: Alert, Oriented X3, Cooperative, No acute distress HEENT: Atraumatic, PERRLA, EOMI, Mucous membr. moist/pink Respiratory: Clear to auscultation, Normal air movement Cardiovascular: Regular rate, Normal S1, Normal S2, No murmurs Abdominal: Normal bowel sounds, Soft, No hepatospenomegaly, No masses, Other (Reports tenderness) Extremities: No clubbing, No cyanosis, No edema, Normal pulses, No tenderness/swelling Skin: No rashes, No breakdown, No significant lesion Neuro: Normal speech, Normal tone, Sensation intact, Cranial nerves 3-12 NL, Reflexes 2+, Other (Generalized weakness) Psych/Mental Status: Mental status NL, Mood NL Labs/Xrays Labs Test 11/18/24 19:11 11/18/24 16:53 11/18/24 16:25 Range/Units Troponin I High Sensitivity 92 *H </=54 ng/L Urine Color Colorless Yellow Urine Clarity Turbid H Clear Urine pH 5.0 5.0-9.0 Urine Specific [place] 1.009 1.001-1.035 Urine Protein 1+ H Negative Urine Ketones Negative Negative Urine Blood 3+ H Negative /uL Urine Nitrite Negative Negative Urine Bilirubin Negative Negative Urine Urobilinogen Normal Negative mg/dL Urine Leukocyte Esterase 3+ Negative /uL Urine RBC 158 0 - 3 /hpf Urine Microscopic WBC 70 H 0-3 /HPF Urine Squamous Epithelial Cells Few <5 /hpf Urine Bacteria Few H None Seen /hpf Urine Glucose Normal Normal mg/dL White Blood Count 8.4 4.4-10.8 10^3/uL Red Blood Count 3.06 L 4.5-5.90 10^6/uL Hemoglobin 10.4 L 13.5-17.5 g/dL Hematocrit 30.4 L 41.0-53.0 % Mean Corpuscular Volume 99.3 80.0-100.0 fL Mean Corpuscular Hemoglobin 34.2 H 28.0-32.0 pg Mean Corpuscular Hemoglobin Concent 34.4 32.0-36.0 g/dL Red Cell Distribution Width 13.6 11.8-14.3 % Platelet Count 154 140-450 10^3/uL Mean Platelet Volume 8.0 6.9-10.8 fL Neutrophils (%) (Auto) 82.6 H 37.0-80.0 % Lymphocytes (%) (Auto) 6.1 L 10.0-50.0 % Monocytes (%) (Auto) 10.6 0.0-12.0 % Eosinophils (%) (Auto) 0.5 0.0-7.0 % Basophils (%) (Auto) 0.2 0.0-2.0 % Neutrophils # (Auto) 7.0 1.6-8.6 10 ^3/uL Lymphocytes # (Auto) 0.5 0.4-5.4 10 ^3/uL Monocytes # (Auto) 0.9 0-1.3 10 ^3/uL Eosinophils # (Auto) 0 0-0.8 10 ^3/uL Basophils # (Auto) 0 0-0.2 10 ^3/uL Nucleated Red Blood Cells 0.0 % Sodium Level 127 L 136-145 mmol/L Potassium Level 3.9 3.5-5.1 mmol/L Chloride Level 96 L 98-107 mmol/L Carbon Dioxide Level 21 20-31 mmol/L Anion Gap 10 5-15 Blood Urea Nitrogen 62 H 9-23 mg/dL Creatinine 2.71 H 0.700-1.30 mg/dL Glomerular Filtration Rate Calc 23 >90 mL/min BUN/Creatinine Ratio 22.9 H 10.0-20.0 Serum Glucose 115 H 74-106 mg/dL Lactic Acid Level 1.3 0.4-2.0 mmol/L Calcium Level 8.4 L 8.7-10.4 mg/dL Total Bilirubin 0.5 0.2-1.0 mg/dL Aspartate Amino Transferase (AST) 25 13-40 U/L Alanine Aminotransferase (ALT) 20 7-40 U/L Alkaline Phosphatase 80 46-116 U/L Total Protein 6.4 5.7-8.2 g/dL Albumin 3.6 3.2-4.8 g/dL Lipase 65 H 12-53 U/L PATIENT: MADYSON KHAN ACCT: [id number] UNIT: [id number] : 1940 LOC: ER ROOM / BED: / AGE / SEX: 84 / M ADM STATUS: REG ER SERVICE 1558 ORDERING PHYSICIAN: KIMBERLY SHIRLEY PAC PROCEDURE(s): ABPL - CT AB PEL WO CON-NO ORAL OR IV REASON: Abdominal distention ORDER NUMBER(s): [id number], ACCESSION NUMBER(s): [id number] Exam: CT CT AB PEL WO CON-NO ORAL OR IV History: Abdominal distention Comparison Study: CT CT AB PEL WO CON-NO ORAL OR IV on DOS: 10/23/24 TECHNIQUE: Multidetector CT of the abdomen was performed from lung bases to pubic symphysis. Imaging was performed without IV contrast. Axial, coronal and s agittal multiplanar reformats were obtained from the axial data set by the technologist. Radiation Dose Information: CT Dose: CTDI volume is 9.13 mGy. Dose-length product is 569.9 mGy*cm FINDINGS: Evaluation of solid organs is limited due to lack of intravenous contrast use. 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 No focal lesions. Gallbladder and Biliary Tree: Unremarkable Spleen: Unremarkable Pancreas: The pancreas is grossly normal in appearance. Adrenal Glands: Unremarkable Kidneys: Stable large bilateral renal cysts. Largest on the right measures 12.1 x 10.6 cm. Largest on the left measures 5 cm. Bladder: Grossly unremarkable for degree of distention. Bowel: The stomach is grossly normal in appearance. Small bowel and colon are normal in caliber and distribution. Gaseous distention of the colon. No abnormal dilatation of the small bowel The appendix is not visualized; however, no secondary findings of acute appendicitis identified. Ascites: Absent Lymphadenopathy: No mesenteric, retroperitoneal or periportal lymphadenopathy. Abdominal Wall and Mesentery: Unremarkable. Vasculature: The visualized abdominal aorta is normal in size and caliber. Alexa luation of abdominal and pelvic vessels is limited due to lack of intravenous contrast. Pelvic Organs: Unremarkable Musculoskeletal: No aggressive focal bony lesions, acute fractures or dislocation. Chronic left femoral neck fracture and dislocation. Soft tissues: Unremarkable IMPRESSION: 1. Multiple bilateral renal cysts. 2. Gaseous distention of the colon 5-6 cm. 3. 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 Assessment/Plan Assessment/Plan Hyponatremia Urinary tract infection Elevated lipase Yzclc-gk-tsmjwmz kidney injury Anemia, unspecified Generalized weakness Elevated troponin I level Plan 1. Admit to telemetry unit 2. Breathing treatment 3. Pain control management 4. IV antibiotic management 5. Management of fluids and electrolytes 6. Consultation for hospitalist 7. Diagnostic test abdomen/pelvis CT 8. DVT prophylaxis-on aspirin 9. Repeat labs CBC, CMP in a.m. 10. Home medication reviewed and reconciled 11. Continue with current medical management 12. Treatment plan discussed with patient and RN. Patient verbalized understanding. Plan discussed with: Patient, Other (RN) My Orders Orders - KAUSHIK ARMENDARIZ DNP Procedure Category Date Status Time Urine Bacterial [facility] 11/18/24 In Process Culture 21:09 Tamsulosin PHA 11/19/24 In Process Hydrochloride (Flomax) 18:00 Hydralazine Injection PHA 11/18/24 In Process (Apresoline Inject 21:15 Ceftriaxone 1gm/50ml PHA 11/19/24 In Process D5w (Rocephin) 09:00 Aspirin Tablet PHA 11/19/24 In Process 10:00 Famotidine Injection PHA 11/19/24 In Process (Pepcid Injection) 10:00 Allergies TRACY 11/18/24 In Process 21:09 Code Status CODE 11/18/24 Transmitted 21:09 Sodium Chloride 0.9% PHA 11/18/24 In Process 21:15 Oxygen Per Hour RT 11/18/24 Transmitted 21:09 Hydrocodone-Acet PHA 11/18/24 In Process 5/325mg Tab ([place] 21:15 Ondansetron Hcl PHA 11/18/24 In Process (Zofran) 21:15 Docusate Sodium PHA 11/18/24 In Process Capsule (Colace 21:15 Fall Risk Precautions TRACY 11/18/[address] 21:09 Complete Blood Count LAB 11/19/24 Verified 04:00 Comprehensive LAB 11/19/24 Verified Metabolic Panel 04:00 Cardiac DIET 11/19/24 Transmitted Diet-2gna,Lofat,Lochol Breakfast Condition: Serious TRACY 11/18/24 In Process 21:09 Acetaminophen Tablet PHA 11/18/24 In Process (Tylenol Tablet) 21:15 Maintain Bed Rest TRACY 11/18/24 In Process 21:09 Sequential TRACY 11/18/24 In Process Compression Device Problem List: (1) Hyponatremia (2) Anemia, unspecified (3) Elevated lipase (4) Mpdis-gq-ewexnee kidney injury (5) Elevated troponin I level (6) Generalized weakness (7) Urinary tract infection Date of Service: November 18, 2024 Billing Provider: KAUSHIK ARMENDARIZ DNP Common Visit Codes: [id number] INP/OBS CARE (HIGH) KAUSHIK ARMENDARIZ DNP November 18, 2024 21:59
[2024-11-18] MEDS ORDERED: NITROGLYCERIN 0.4 MG SL TAB SL PRN (22:00)
[2024-11-18] MEDS ORDERED: MORPHINE SULFATE INJ 2 MG/ml SYRG IV PRN (22:00)
[2024-11-18 23:56] VITALS: BP 118/65; PULSE 92; RESP 16; TEMP 97.8; O2SAT 92
[2024-11-19] VITALS (9 sets, daily range): BP systolic 98–118; BP diastolic 47–69; PULSE 81–96; RESP 14–22; TEMP 97.6–98.4; O2SAT 93–99
[2024-11-19] MEDS ORDERED: HYDR-4795 PO (03:05)
[2024-11-19] MEDS ORDERED: ASPI1TAB20 PO (03:05)
[2024-11-19 06:06] LABS: Basophils # (auto) 0.1 10 ^3/uL (0-0.2); Basophils % (auto) 1.3 % (0.0-2.0); Eosinophils # (auto) 0.3 10 ^3/uL (0-0.8); Eosinophils % (auto) 5.3 % (0.0-7.0); Hematocrit 27.1 % (41.0-53.0); Hemoglobin 9.4 g/dL (13.5-17.5); Lymphocytes # (auto) 0.9 10 ^3/uL (0.4-5.4); Lymphocytes % (auto) 17.9 % (10.0-50.0); Mean Corpuscular Hemoglobin 34.4 pg (28.0-32.0); Mean Corpuscular Hgb Conc. 34.7 g/dL (32.0-36.0); Monocytes # (auto) 0.7 10 ^3/uL (0-1.3); Monocytes % (auto) 13.2 % (0.0-12.0); Neutrophils # (auto) 3.1 10 ^3/uL (1.6-8.6); Neutrophils % (auto) 62.3 % (37.0-80.0); Platelet Count (auto) 156 10^3/uL (140-450); Red Blood Cells 2.74 10^6/uL (4.5-5.90); Red Cell Distribution Width 13.8 % (11.8-14.3)
[2024-11-19 06:28] LABS: Alanine Aminotransferase 16 U/L (7-40); Alkaline Phosphatase 67 U/L (46-116); Anion Gap 8 (5-15); BUN/Creatinine Ratio 26.6 (10.0-20.0); Calcium 8.8 mg/dL (8.7-10.4); Chloride 101 mmol/L (98-107); Glucose 88 mg/dL (74-106); Potassium 4.2 mmol/L (3.5-5.1); Total Protein 5.8 g/dL (5.7-8.2)
[2024-11-19 06:29] LABS: Blood Urea Nitrogen 58 mg/dL (9-23); Carbon Dioxide 19 mmol/L (20-31); Sodium 128 mmol/L (136-145)
[2024-11-19 06:30] LABS: Albumin 3.2 g/dL (3.2-4.8); Aspartate Aminotransferase 20 U/L (13-40); Bilirubin, Total 0.3 mg/dL (0.2-1.0)
[2024-11-19] MEDS: cefTRIAXone 1GM/50ML D5W 50 ML IV SCH (10:09)
[2024-11-19] MEDS: FAMOTIDINE (10MG/ML) 2ML VL IV SCH (10:10)
[2024-11-19] MEDS: ASPirin 81 mg TAB PO SCH (10:10)
[2024-11-19] MEDS: TAMSULOSIN HYDROCHLORIDE 0.4 MG CAP PO SCH (17:01)
--- NOTE | 2024-11-19 19:36 | DVHPN2 ---
Subjective in bed resting Changes from previous H/P or p: No Changes Eyes: No Pain, No Vision change, No Conjunctivae inflammation, No Eyelid inflammation, No Other, No Redness ENT: No Ear pain, No Ear discharge, No Nose pain, No Nose discharge, No Nose congestion, No Mouth pain, No Mouth swelling, No Throat pain, No Throat swelling, No Other Cardiovascular: No Chest Pain, No Palpitations, No Orthopnea, No Paroxysmal Noc. Dyspnea, No Edema, No Lt Headedness, No Other Respiratory: No Cough, No Dry; Shortness of breath; No SOB with excertion, No Wheezing, No Hemoptysis, No Pleuritic Pain, No Sputum, No Other Gastrointestinal: No Nausea, No Vomiting; Abdominal Pain; No Diarrhea, No Constipation, No Melena, No Hematochezia; Other (Abdominal distention) Genitourinary: No Dysuria, No Frequency, No Incontinence, No Hematuria, No Retention, No Other Musculoskeletal: No other, No neck pain, No shoulder pain, No arm pain, No back pain, No hand pain, No leg pain, No foot pain Skin: No Rash, No Lesions, No Jaundice, No Bruising, No Other Objective Vitals Vital Signs Date Time Temp Pulse Resp B/P (MAP) Pulse Ox O2 Delivery O2 Flow Rate FiO2 11/19/24 16:51 97.6 91 18 116/69 (85) 97 97.6 11/19/24 08:30 Room Air* 0 21 Intake/Output Intake and Output 11/19/24 07:00 Intake Total 210 ml Output Total 1300 ml Balance -1090 ml Intake Oral 100 ml IV Total 110 ml Output Urine Total 1300 ml General Appearance: Alert, Oriented X3 Lungs: Clear to auscultation Cardiovascular: Regular rate, Normal S1, Normal S2 Medications Current Medications Medications Dose Ordered Sig/Rigo Route Start Time Stop Time Status Last Admin Dose Admin Tamsulosin HCl 0.4 mg QPM PO 11/19/24 18:00 11/19/24 17:01 0.4 MG Hydralazine HCl 10 mg Q6HP PRN IV 11/18/24 21:15 Ceftriaxone Sodium 50 ml @ 100 mls/hr DAILY@09 IV 11/19/24 09:00 11/19/24 10:09 100 MLS/HR Aspirin 81 mg DAILY PO 11/19/24 10:00 11/19/24 10:10 81 MG Famotidine 20 mg DAILY IV 11/19/24 10:00 11/19/24 10:10 20 MG Sodium Chloride 1,000 ml @ 60 mls/hr [id number] IV 11/18/24 21:15 11/19/24 14:41 60 MLS/HR Acetaminophen/ Hydrocodone Bitart 1 tab Q4HP PRN PO 11/18/24 21:15 Ondansetron HCl 4 mg Q4HP PRN IV 11/18/24 21:15 Docusate Sodium 100 mg BIDPRN PRN PO 11/18/24 21:15 Acetaminophen 650 mg Q6HP PRN PO 11/18/24 21:15 Nitroglycerin 0.4 mg Q5MINP PRN SL 11/18/24 22:00 Morphine Sulfate 2 mg Q30M PRN IV 11/18/24 22:00 Laboratory Results Laboratory Tests 11/19/24 05:41 Chemistry Test 11/19/24 05:41 Albumin 3.2 g/dL (3.2-4.8) Calcium Level 8.8 mg/dL (8.7-10.4) Total Protein 5.8 g/dL (5.7-8.2) LFT Test 11/19/24 05:41 Alanine Aminotransferase (ALT) 16 U/L (7-40) Alkaline Phosphatase 67 U/L (46-116) Aspartate Amino Transferase (AST) 20 U/L (13-40) Total Bilirubin 0.3 mg/dL (0.2-1.0) Urinalysis Test 11/18/24 16:53 Urine Color Colorless (Yellow) Urine Clarity Turbid (Clear) H Urine pH 5.0 (5.0-9.0) Urine Specific [place] 1.009 (1.001-1.035) Urine Protein 1+ (Negative) H Urine Ketones Negative (Negative) Urine Blood 3+ /uL (Negative) H Urine Nitrite Negative (Negative) Urine Bilirubin Negative (Negative) Urine Urobilinogen Normal mg/dL (Negative) Urine Leukocyte Esterase 3+ /uL (Negative) Urine RBC 158 /hpf (0 - 3) Urine Microscopic WBC 70 /HPF (0-3) H Urine Squamous Epithelial Cells Few /hpf (<5) Urine Bacteria Few /hpf (None Seen) H Urine Glucose Normal mg/dL (Normal) Microbiology Microbiology Date/Time Source Procedure Growth Status 11/18/24 16:53 Voided Urine Urine Culture - Preliminary Resulted 11/18/24 16:35 Blood Blood Culture - Preliminary NO GROWTH AFTER 24 HOURS OF INCUBATION. Resulted Assessment/Plan Assessment/Plan Hyponatremia Urinary tract infection Elevated lipase Bzsbn-jr-jragaez kidney injury Anemia, unspecified Generalized weakness Elevated troponin I level Monitor BMP daily IVF with NS Creat trend 2.7>2.18 Plan discussed with: Patient My Orders Orders - JACKSON MATHEW MD Procedure Category Date Status Time Mrsa Screen [facility] 11/19/24 Uncollected 17:06 Date of Service: November 19, 2024 Billing Provider: JACKSON MATHEW MD Common Visit Codes: [id number] INP/OBS CARE(HIGH) JACKSON MATHEW MD November 19, 2024 19:36
[2024-11-20] VITALS (8 sets, daily range): BP systolic 111–120; BP diastolic 54–73; PULSE 68–104; RESP 16–20; TEMP 97.8–98.2; O2SAT 95–100
[2024-11-20 11:46] LABS: Chloride 105 mmol/L (98-107); Potassium 4.6 mmol/L (3.5-5.1)
[2024-11-20 11:47] LABS: Anion Gap 8 (5-15); Carbon Dioxide 22 mmol/L (20-31)
[2024-11-20 11:52] LABS: BUN/Creatinine Ratio 28.7 (10.0-20.0); Blood Urea Nitrogen 49 mg/dL (9-23); Glucose 113 mg/dL (74-106); Sodium 135 mmol/L (136-145)
[2024-11-20] MEDS: ENOXAPARIN SOD 40 MG/0.4 ML SYRINGE SC SCH (12:00)
--- NOTE | 2024-11-20 17:46 | DVHPN2 ---
Subjective in bed resting Changes from previous H/P or p: No Changes Eyes: No Pain, No Vision change, No Conjunctivae inflammation, No Eyelid inflammation, No Other, No Redness ENT: No Ear pain, No Ear discharge, No Nose pain, No Nose discharge, No Nose congestion, No Mouth pain, No Mouth swelling, No Throat pain, No Throat swelling, No Other Cardiovascular: No Chest Pain, No Palpitations, No Orthopnea, No Paroxysmal Noc. Dyspnea, No Edema, No Lt Headedness, No Other Respiratory: No Cough, No Dry; Shortness of breath; No SOB with excertion, No Wheezing, No Hemoptysis, No Pleuritic Pain, No Sputum, No Other Gastrointestinal: No Nausea, No Vomiting; Abdominal Pain; No Diarrhea, No Constipation, No Melena, No Hematochezia; Other (Abdominal distention) Genitourinary: No Dysuria, No Frequency, No Incontinence, No Hematuria, No Retention, No Other Musculoskeletal: No other, No neck pain, No shoulder pain, No arm pain, No back pain, No hand pain, No leg pain, No foot pain Skin: No Rash, No Lesions, No Jaundice, No Bruising, No Other Objective Vitals Vital Signs Date Time Temp Pulse Resp B/P (MAP) Pulse Ox O2 Delivery O2 Flow Rate FiO2 11/20/24 17:00 98.0 68 17 120/54 (76) 99 98.0 11/20/24 08:30 Room Air* 0 21 Intake/Output Intake and Output 11/20/24 07:00 Intake Total 2040 ml Output Total 3100 ml Balance -1060 ml Intake Oral 2040 ml Output Urine Total 3100 ml General Appearance: Alert, Oriented X3 Lungs: Clear to auscultation Cardiovascular: Regular rate, Normal S1, Normal S2 Medications Current Medications Medications Dose Ordered Sig/Rigo Route Start Time Stop Time Status Last Admin Dose Admin Tamsulosin HCl 0.4 mg QPM PO 11/19/24 18:00 11/20/24 17:34 0.4 MG Hydralazine HCl 10 mg Q6HP PRN IV 11/18/24 21:15 Ceftriaxone Sodium 50 ml @ 100 mls/hr DAILY@09 IV 11/19/24 09:00 11/20/24 10:02 100 MLS/HR Aspirin 81 mg DAILY PO 11/19/24 10:00 11/20/24 10:02 81 MG Famotidine 20 mg DAILY IV 11/19/24 10:00 11/20/24 10:02 20 MG Sodium Chloride 1,000 ml @ 60 mls/hr [id number] IV 11/18/24 21:15 11/19/24 23:27 60 MLS/HR Acetaminophen/ Hydrocodone Bitart 1 tab Q4HP PRN PO 11/18/24 21:15 Ondansetron HCl 4 mg Q4HP PRN IV 11/18/24 21:15 Docusate Sodium 100 mg BIDPRN PRN PO 11/18/24 21:15 Acetaminophen 650 mg Q6HP PRN PO 11/18/24 21:15 Nitroglycerin 0.4 mg Q5MINP PRN SL 11/18/24 22:00 Morphine Sulfate 2 mg Q30M PRN IV 11/18/24 22:00 Enoxaparin Sodium 40 mg DAILY SC 11/20/24 10:58 11/20/24 12:00 40 MG Laboratory Results Laboratory Tests 11/19/24 05:41 11/20/24 11:30 Chemistry Test 11/20/24 11:30 Calcium Level 9.0 mg/dL (8.7-10.4) Urinalysis Test 11/18/24 16:53 Urine Color Colorless (Yellow) Urine Clarity Turbid (Clear) H Urine pH 5.0 (5.0-9.0) Urine Specific [place] 1.009 (1.001-1.035) Urine Protein 1+ (Negative) H Urine Ketones Negative (Negative) Urine Blood 3+ /uL (Negative) H Urine Nitrite Negative (Negative) Urine Bilirubin Negative (Negative) Urine Urobilinogen Normal mg/dL (Negative) Urine Leukocyte Esterase 3+ /uL (Negative) Urine RBC 158 /hpf (0 - 3) Urine Microscopic WBC 70 /HPF (0-3) H Urine Squamous Epithelial Cells Few /hpf (<5) Urine Bacteria Few /hpf (None Seen) H Urine Glucose Normal mg/dL (Normal) Microbiology Microbiology Date/Time Source Procedure Growth Status 11/19/24 20:19 Nose MRSA Screen - Final Complete 11/18/24 16:53 Voided Urine Urine Culture - Preliminary Resulted 11/18/24 16:35 Blood Blood Culture - Preliminary NO GROWTH AFTER 48 HOURS OF INCUBATION. Resulted Assessment/Plan Assessment/Plan Hyponatremia Urinary tract infection Elevated lipase Amorz-jx-czsebun kidney injury Anemia, unspecified Generalized weakness Elevated troponin I level Monitor BMP daily Na 128>135 IVF with NS Creat trend 2.7>2.18>1.7 If continues to improved can possible dc tomorrow Plan discussed with: Patient My Orders Orders - JACKSON MATHEW MD Procedure Category Date Status Time Pt Request For Service PT 11/20/24 Logged 10:52 Enoxaparin Sodium PHA 11/20/24 In Process (Lovenox) 10:58 * [employer] CONS 11/20/24 Transmitted Consult Date of Service: November 20, 2024 Billing Provider: JACKSON MATHEW MD Common Visit Codes: [id number] INP/OBS CARE(HIGH) JACKSON MATHEW MD November 20, 2024 17:46
[2024-11-21] VITALS (8 sets, daily range): BP systolic 123–141; BP diastolic 57–64; PULSE 65–76; RESP 15–20; TEMP 98.3–98.7; O2SAT 96–98
--- NOTE | 2024-11-21 21:03 | DVHPN2 ---
Subjective in bed resting Reviewed: Care Plan, H&P Changes from previous H/P or p: No Changes Eyes: No Pain, No Vision change, No Conjunctivae inflammation, No Eyelid inflammation, No Other, No Redness ENT: No Ear pain, No Ear discharge, No Nose pain, No Nose discharge, No Nose congestion, No Mouth pain, No Mouth swelling, No Throat pain, No Throat swelling, No Other Cardiovascular: No Chest Pain, No Palpitations, No Orthopnea, No Paroxysmal Noc. Dyspnea, No Edema, No Lt Headedness, No Other Respiratory: No Cough, No Dry; Shortness of breath; No SOB with excertion, No Wheezing, No Hemoptysis, No Pleuritic Pain, No Sputum, No Other Gastrointestinal: No Nausea, No Vomiting; Abdominal Pain; No Diarrhea, No Constipation, No Melena, No Hematochezia; Other (Abdominal distention) Genitourinary: No Dysuria, No Frequency, No Incontinence, No Hematuria, No Retention, No Other Musculoskeletal: No other, No neck pain, No shoulder pain, No arm pain, No back pain, No hand pain, No leg pain, No foot pain Skin: No Rash, No Lesions, No Jaundice, No Bruising, No Other Objective Vitals Vital Signs Date Time Temp Pulse Resp B/P (MAP) Pulse Ox O2 Delivery O2 Flow Rate FiO2 11/21/24 17:00 98.6 65 16 123/64 (83) 98 98.6 11/21/24 08:00 Room Air* 0 21 Intake/Output Intake and Output 11/21/24 07:00 Intake Total 1680 ml Output Total 1800 ml Balance -120 ml Intake Oral 900 ml IV Total 780 ml Output Urine Total 1800 ml # Bowel Movements 1 General Appearance: Alert, Oriented X3 Lungs: Clear to auscultation Cardiovascular: Regular rate, Normal S1, Normal S2 Medications Current Medications Medications Dose Ordered Sig/Rigo Route Start Time Stop Time Status Last Admin Dose Admin Tamsulosin HCl 0.4 mg QPM PO 11/19/24 18:00 11/21/24 17:59 0.4 MG Hydralazine HCl 10 mg Q6HP PRN IV 11/18/24 21:15 Ceftriaxone Sodium 50 ml @ 100 mls/hr DAILY@09 IV 11/19/24 09:00 11/21/24 08:43 100 MLS/HR Aspirin 81 mg DAILY PO 11/19/24 10:00 11/21/24 10:20 81 MG Famotidine 20 mg DAILY IV 11/19/24 10:00 11/21/24 10:20 20 MG Sodium Chloride 1,000 ml @ 60 mls/hr [id number] IV 11/18/24 21:15 11/21/24 15:16 60 MLS/HR Acetaminophen/ Hydrocodone Bitart 1 tab Q4HP PRN PO 11/18/24 21:15 Ondansetron HCl 4 mg Q4HP PRN IV 11/18/24 21:15 Docusate Sodium 100 mg BIDPRN PRN PO 11/18/24 21:15 Acetaminophen 650 mg Q6HP PRN PO 11/18/24 21:15 Nitroglycerin 0.4 mg Q5MINP PRN SL 11/18/24 22:00 Morphine Sulfate 2 mg Q30M PRN IV 11/18/24 22:00 Enoxaparin Sodium 40 mg DAILY SC 11/20/24 10:58 11/21/24 10:20 40 MG Laboratory Results Laboratory Tests 11/19/24 05:41 11/20/24 11:30 Urinalysis Test 11/18/24 16:53 Urine Color Colorless (Yellow) Urine Clarity Turbid (Clear) H Urine pH 5.0 (5.0-9.0) Urine Specific [place] 1.009 (1.001-1.035) Urine Protein 1+ (Negative) H Urine Ketones Negative (Negative) Urine Blood 3+ /uL (Negative) H Urine Nitrite Negative (Negative) Urine Bilirubin Negative (Negative) Urine Urobilinogen Normal mg/dL (Negative) Urine Leukocyte Esterase 3+ /uL (Negative) Urine RBC 158 /hpf (0 - 3) Urine Microscopic WBC 70 /HPF (0-3) H Urine Squamous Epithelial Cells Few /hpf (<5) Urine Bacteria Few /hpf (None Seen) H Urine Glucose Normal mg/dL (Normal) Microbiology Microbiology Date/Time Source Procedure Growth Status 11/19/24 20:19 Nose MRSA Screen - Final Complete 11/18/24 16:53 Voided Urine Urine Culture - Final Complete 11/18/24 16:35 Blood Blood Culture - Preliminary NO GROWTH AFTER 72 HOURS OF INCUBATION. Resulted Assessment/Plan Assessment/Plan Hyponatremia Urinary tract infection Elevated lipase Filqc-so-gixzfaf kidney injury Anemia, unspecified Generalized weakness Elevated troponin I level Monitor BMP daily Na 128>135 IVF with NS Creat trend 2.7>2.18>1.7 If continues to improved can possible dc tomorrow Plan discussed with: Patient Date of Service: November 21, 2024 Billing Provider: JACKSON MATHEW MD Common Visit Codes: [id number] INP/OBS CARE(HIGH) JACKSON MATHEW MD November 21, 2024 21:03
[2024-11-22] VITALS (7 sets, daily range): BP systolic 127–181; BP diastolic 64–85; PULSE 68–78; RESP 16–20; TEMP 97.8–98.7; O2SAT 96–99
[2024-11-22 06:59] LABS: Anion Gap 9 (5-15); Carbon Dioxide 22 mmol/L (20-31); Chloride 108 mmol/L (98-107); Potassium 4.6 mmol/L (3.5-5.1); Sodium 139 mmol/L (136-145)
[2024-11-22 07:05] LABS: BUN/Creatinine Ratio 18.8 (10.0-20.0); Glucose 89 mg/dL (74-106)
[2024-11-22 07:06] LABS: Blood Urea Nitrogen 29 mg/dL (9-23); Calcium 9.1 mg/dL (8.7-10.4)
[2024-11-22] MEDS: amLODIPine BESYLATE 5 MG TAB PO ONE (17:27)
[2024-11-22] MEDS: LISINOPRIL 5 MG TAB PO ONE (17:28)
[2024-11-22] MEDS ORDERED: AMLO1TAB23 PO (18:43)
--- NOTE | 2024-11-22 19:04 | DVHDS2 ---
Discharge Summary Date of Admission November 18, 2024 at 21:57 Date of Discharge: November 22, 2024 Labs/Diagnostic Data: Laboratory Results Test 11/22/24 05:50 11/19/24 05:41 11/19/24 03:54 11/18/24 16:53 Sodium Level 139 mmol/L (136-145) Potassium Level 4.6 mmol/L (3.5-5.1) Chloride Level 108 mmol/L (98-107) Carbon Dioxide Level 22 mmol/L (20-31) Anion Gap 9 (5-15) Blood Urea Nitrogen 29 mg/dL (9-23) Creatinine 1.54 mg/dL (0.700-1.30) Glomerular Filtration Rate Calc 44 mL/min (>90) BUN/Creatinine Ratio 18.8 (10.0-20.0) Serum Glucose 89 mg/dL (74-106) Calcium Level 9.1 mg/dL (8.7-10.4) White Blood Count 5.0 10^3/uL (4.4-10.8) Red Blood Count 2.74 10^6/uL (4.5-5.90) Hemoglobin 9.4 g/dL (13.5-17.5) Hematocrit 27.1 % (41.0-53.0) Mean Corpuscular Volume 99.0 fL (80.0-100.0) Mean Corpuscular Hemoglobin 34.4 pg (28.0-32.0) Mean Corpuscular Hemoglobin Concent 34.7 g/dL (32.0-36.0) Red Cell Distribution Width 13.8 % (11.8-14.3) Platelet Count 156 10^3/uL (140-450) Mean Platelet Volume 7.9 fL (6.9-10.8) Neutrophils (%) (Auto) 62.3 % (37.0-80.0) Lymphocytes (%) (Auto) 17.9 % (10.0-50.0) Monocytes (%) (Auto) 13.2 % (0.0-12.0) Eosinophils (%) (Auto) 5.3 % (0.0-7.0) Basophils (%) (Auto) 1.3 % (0.0-2.0) Neutrophils # (Auto) 3.1 10 ^3/uL (1.6-8.6) Lymphocytes # (Auto) 0.9 10 ^3/uL (0.4-5.4) Monocytes # (Auto) 0.7 10 ^3/uL (0-1.3) Eosinophils # (Auto) 0.3 10 ^3/uL (0-0.8) Basophils # (Auto) 0.1 10 ^3/uL (0-0.2) Nucleated Red Blood Cells 0.0 % Total Bilirubin 0.3 mg/dL (0.2-1.0) Aspartate Amino Transferase (AST) 20 U/L (13-40) Alanine Aminotransferase (ALT) 16 U/L (7-40) Alkaline Phosphatase 67 U/L (46-116) Total Protein 5.8 g/dL (5.7-8.2) Albumin 3.2 g/dL (3.2-4.8) Troponin I High Sensitivity 56 ng/L (</=54) Urine Color Colorless (Yellow) Urine Clarity Turbid (Clear) Urine pH 5.0 (5.0-9.0) Urine Specific [place] 1.009 (1.001-1.035) Urine Protein 1+ (Negative) Urine Ketones Negative (Negative) Urine Blood 3+ /uL (Negative) Urine Nitrite Negative (Negative) Urine Bilirubin Negative (Negative) Urine Urobilinogen Normal mg/dL (Negative) Urine Leukocyte Esterase 3+ /uL (Negative) Urine RBC 158 /hpf (0 - 3) Urine Microscopic WBC 70 /HPF (0-3) Urine Squamous Epithelial Cells Few /hpf (<5) Urine Bacteria Few /hpf (None Seen) Urine Glucose Normal mg/dL (Normal) Test 11/18/24 16:25 Lactic Acid Level 1.3 mmol/L (0.4-2.0) Lipase 65 U/L (12-53) Other Laboratory Tests 11/22/24 05:50 11/19/24 05:41 Brief Hx & Hospital Course: The patient is a 84-year-old male with past medical history of BPH, HLD, TIA, and hypertension who presented to [facility] ED with complaint of abdominal pain. Patient reports symptoms progressively get worse with abdominal distention, weakness, getting worse that prompted this visit. Patient was seen and evaluated in the ED, laboratory data shows WBC 8.4, hemoglobin 10.4, hematocrit 30.4, platelets 154, sodium 127, potassium 3.9, BUN 62, creatinine 2.71, glucose 115, troponin 92, calcium 8.4, lipase 65, blood pressure 110/60, heart rate 82, temperature 98.1 F, O2 saturation 94% on oxygen. Urinalysis positive for urinary tract infection. 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 Patient was started on IV antibiotic regimen Rocephin, please see medication orders section in the computer. On my assessment, patient denied chest pain, no headache, no dizziness, currently on oxygen, no nausea, no vomiting, no fever, no chills. Patient was admitted further evaluation and medical management. Creatnine improved to 1.5 on IVF, TORY I held Hyponatremia back to normal on IVF UTI ruled out with negative cultures Condition at Discharge: Good Final Diagnosis/Problems List acute kidney injury due to ATN Hyponatremia UTI ruled out Discharge Disposition: Home Discharge Instruct/Medications Diet: Regular Activity: No Restrictions, As Tolerated Follow Up/Referral: PCP in 7 days Medications: same home medications Discharge Statement: "Patient was advised to return to the ER or call 911 if any headaches, dizziness, shortness of breath, chest pain, abdominal pain, bleeding, fevers, or worsening of medical condition. Patient was counseled about treatment plan, medications, possible side effects, patientverbalized understanding. All questions were answered to the best of my ability. This discharge took greater then 30 minutes in planning, reviewing documentation, counseling the patient, and discussing with other team members." ASSESSMENT ASSESSMENT Assessment acute kidney injury due to ATN Hyponatremia Date of Service: November 22, 2024 Billing Provider: JACKSON MATHEW MD Common Visit Codes: 81173-ZTT/OBS DISCH DAY >30min JACKSON MATHEW MD November 22, 2024 19:04
== END 2024-11-22 19:21 | disposition home or self-care (01) | DRG 682 ==
LOC: ER 15:49 → EDBD 15:49 → OVERFLOW 21:57 → TELE-WESTW 23:16
PROVIDERS: ADMIT Hospitalist; ATTEND Hospitalist
DX: N17.0 Acute kidney failure with tubular necrosis (principal); J96.01 Acute respiratory failure with hypoxia; E87.1 Hypo-osmolality and hyponatremia; R10.9 Unspecified abdominal pain; D64.9 Anemia, unspecified; I10 Essential (primary) hypertension; N28.1 Cyst of kidney, acquired; N40.0 Benign prostatic hyperplasia without lower urinary tract symptoms; E78.5 Hyperlipidemia, unspecified; R79.89 Other specified abnormal findings of blood chemistry; R74.8 Abnormal levels of other serum enzymes; Z79.899 Other long term (current) drug therapy; Z86.73 Personal history of transient ischemic attack (TIA), and cerebral infarction without residual deficits; E86.0 Dehydration
CPT/HCPCS: 36415; 74176; 80048; 80053; 81001; 83605; 83690; 84484; 85025; 87040; 87081; 87086; 93005; 96365; 97110; G0378; J3490